=== PATIENT | female | born 1970 | race Caucasian/White ===

== ENCOUNTER 2016-05-04 16:59 | Inpatient (IN) | payer MEDICAID ==
[2016-05-04 18:48] LABS: ABG Draw Site Right Radial; ALLEN'S TEST PASS; BEb 10.8 (+/- 2); TCO2 39.4 MMOL/L (23-27)
[2016-05-04] MEDS ORDERED: LEVALBUTEROL 1.25 MG in 3 ML NEB NEB PRN (18:55)
[2016-05-04] MEDS ORDERED: GLUCOSE (ORAL GEL) 15 GM TUBE PO PRN (18:58)
[2016-05-04] MEDS ORDERED: GLUCAGON 1 MG VIAL SQ PRN (18:58)
[2016-05-04] MEDS ORDERED: DEXTROSE 25 GM/50 ML PFS IV PRN (18:58)
[2016-05-04] MEDS ORDERED: PROMETHAZINE 25 MG/ML VIAL IV PRN (18:59)
[2016-05-04] MEDS ORDERED: ZOLPIDEM TARTRATE 5 MG TAB PO PRN (18:59)
[2016-05-04] MEDS ORDERED: Docusate Sodium 100 MG CAP PO PRN (18:59)
[2016-05-04] MEDS ORDERED: Aluminum;Magnesium;Simethicone 30 ML UDC PO PRN (18:59)
[2016-05-04] MEDS ORDERED: ACETAMINOPHEN 650 MG SUPP PR PRN (18:59)
--- NOTE | 2016-05-04 19:17 | DIRPT ---
CLINICAL DATA: Respiratory distress, hypertension and history of COPD. EXAM: PORTABLE CHEST 1 VIEW COMPARISON: 12/30/2015 FINDINGS: The heart size and mediastinal contours are within normal limits. Stable emphysematous lung disease. There is no evidence of pulmonary edema, consolidation, pneumothorax, nodule or pleural fluid. The visualized skeletal structures are unremarkable. IMPRESSION: Stable emphysema. No active disease. Electronically Signed By: Gómez Curiel M.D. On: 05/04/2016 19:14
[2016-05-04] MEDS: HYDROCODONE 5 MG/ACETAMIN 325 MG TAB PO PRN (19:30)
[2016-05-04] MEDS ORDERED: METHYLPREDNISOLONE 125 MG/2 ML VIAL IV ONE (20:00)
[2016-05-04] MEDS ORDERED: Vaccine Screening Complete SCH (20:00)
[2016-05-04 20:37] LABS: BLOOD UREA NITROGEN 13 MG/DL (7-17); CALCIUM 9.1 MG/DL (8.4-10.2); CALCULATED OSMOLALITY 264 MOs/Kg (270-290); CHLORIDE 92 mEq/L (98-107); CPK TOTAL WITH POSSIBLE MB 153 IU/L (30-134); GLUCOSE 165 MG/DL (70-99); MPV 7.9 fL (7.4-10.4); PARTIAL THROMB. TIME 24.5 SEC (22-35); SODIUM LEVEL 135 mEq/L (137-146); TOTAL PROTEIN 6.5 G/DL (6.3-8.2)
[2016-05-04] MEDS: CEFEPIME HYDROCHLORIDE 2 GM in D5W 100 ML IV SCH (20:49)
[2016-05-04 21:14] LABS: CPKMB 10.4 ng/mL (0-4.5); CPKMB RELATIVE INDEX 6.8 (0.0-2.2)
[2016-05-04 21:17] LABS: SEG NEUTROPHIL 76 % (45-76); TOTAL CELL COUNT 100
[2016-05-04] MEDS: ALPRAZOLAM 0.5 MG TAB PO SCH (21:39)
[2016-05-04] MEDS: MORPHINE 30 MG IMMED REL TAB PO PRN (21:39)
[2016-05-04] MEDS: MONTELUKAST SODIUM 10 MG TAB PO SCH (21:40)
[2016-05-04] MEDS: Docusate Sodium 100 MG CAP PO SCH (21:40)
[2016-05-04] MEDS: LUBIPROSTONE 24 MCG CAP PO SCH (21:40)
[2016-05-04] MEDS: FAMOTIDINE 20 MG TAB PO SCH (21:40)
[2016-05-04] MEDS: NICOTINE 21 MG PATCH TOP SCH (21:40)
[2016-05-04] MEDS: AZITHROMYCIN 500 MG in D5W 250 ML IV SCH (21:43)
[2016-05-04 22:44] LABS: LEUKOCYTES/URINE NEG (NEGATIVE); NITRITE/URINE NEG (NEGATIVE); URINE OCCULT BLOOD NEG (NEG/TRACE)
[2016-05-04 22:52] LABS: RBC/URINE 0-2 (0-5); WBC/URINE 0-2 (0-5)
[2016-05-04] MEDS: REGULAR INSULIN 100 UNITS/ML - 3 ML VIAL SQ SCH (23:32)
[2016-05-04] MEDS: IPRATROPIUM 0.02% 2.5 ML NEB NEB SCH (23:42)
[2016-05-04] MEDS: LEVALBUTEROL 1.25 MG in 3 ML NEB NEB SCH (23:47)
[2016-05-05] MEDS: METHYLPREDNISOLONE 125 MG/2 ML VIAL IV SCH ×4 (02:55→21:44)
[2016-05-05] MEDS: MORPHINE 30 MG IMMED REL TAB PO PRN ×4 (03:21→21:28)
[2016-05-05] MEDS: PANTOPRAZOLE 40 MG TAB PO SCH (05:49)
[2016-05-05] MEDS: ALPRAZOLAM 0.5 MG TAB PO SCH ×3 (05:49→21:28)
[2016-05-05] MEDS: REGULAR INSULIN 100 UNITS/ML - 3 ML VIAL SQ SCH ×3 (05:50→18:00)
[2016-05-05] MEDS: CEFEPIME HYDROCHLORIDE 2 GM in D5W 100 ML IV SCH ×2 (08:05→21:27)
[2016-05-05] MEDS: PROBIOTIC BLEND TAB PO SCH (08:05)
[2016-05-05] MEDS: LUBIPROSTONE 24 MCG CAP PO SCH ×2 (08:06→21:27)
[2016-05-05] MEDS: Docusate Sodium 100 MG CAP PO SCH ×2 (08:07→21:27)
[2016-05-05] MEDS: THEOPHYLLINE 200 MG PO SCH (08:07)
[2016-05-05] MEDS: LOSARTAN POTASSIUM 50 MG TAB PO SCH (08:09)
[2016-05-05] MEDS ORDERED: FENTANYL 100 MCG PATCH TOP SCH (09:00)
[2016-05-05] MEDS ORDERED: THEOPHYLLINE 200 MG PO SCH (09:00)
[2016-05-05] MEDS: LEVALBUTEROL 1.25 MG in 3 ML NEB NEB SCH ×2 (09:35→17:13)
[2016-05-05] MEDS: IPRATROPIUM 0.02% 2.5 ML NEB NEB SCH ×2 (09:35→17:15)
[2016-05-05] MEDS: BUDESONIDE 0.5 MG NEB NEB SCH ×2 (09:42→21:18)
[2016-05-05] MEDS: HYDROCODONE 5 MG/ACETAMIN 325 MG TAB PO PRN ×3 (13:41→22:57)
--- NOTE | 2016-05-05 13:59 | PCM.PULM ---
Chief Complaint: Respiratory failure acute on chronic COPD exacerbation Chronic pain Anxiety Patient sitting at bedside feeling a little better today. Patient is somewhat drowsy today Still has significant dyspnea, BARKER,cough, sputum, wheeze, chest congestion, fatigued. No chest pain reported Medication list reviewed:yes Notes reviewed:yes, Events from last night noted and discussed with Clinical Staff DVT/GI prophylaxis:yes - Physical Examination Vital Signs and I&O: Last Vital Signs Temp 98.2 F 05/05/16 11:58 Pulse 95 05/05/16 11:58 Resp 20 05/05/16 11:58 BP 110/64 05/05/16 11:58 Pulse Ox 96 05/05/16 11:58 Oxygen Pulse Oxygen Saturation 96 O2 Device Nasal Cannula Oxygen Flow Rate 2.5 Fraction of Inspired Oxygen ( FIO2) Intake & Output 05/02/16 05/03/16 05/04/16 05/05/16 23:59 23:59 23:59 23:59 Intake Total 600 Output Total 1050 Balance -450 Patient's weight 53.796 kg 54.839 kg General: Alert, Oriented x3, Cooperative, No acute distress, Weakness, Fatigue Respiratory: Diminished, Rhonchi Cardiovascular: Regular rate, Regular rate and rhythm, Normal S1, No Gallops, Rubs/Murmurs, Normal S2, Good Pedal Pulses (Dp pulses 2+ bilaterally) GI: Normal bowel sounds, Soft, Non tender, No hepatospenomegaly, No masses Extremities/Musculoskeletal: Normal pulses Skin: Warm,Dry and Intact, No rashes, No breakdown, No significant lesion Neurological: Normal Steady Gait, Normal speech, Strength at 5/5 X4 ext, Normal tone, Cranial nerves 3-12 NL Psych/Mental Status: Appropriate, Anxious Result Diagrams: 05/04/16 19:45 05/04/16 19:45 Labs (last 24 hours): Laboratory Results - last 24 hr 05/04/16 05/04/16 05/04/16 18:44 19:45 19:45 WBC 10.3 RBC 4.28 Hgb 14.4 Hct 41.9 MCV 98 MCH 33.6 H MCHC 34.3 RDW 13.1 Plt Count 239 MPV 7.9 Neut % (Auto) Cancelled Lymph % (Auto) Cancelled Lucas % (Auto) Cancelled Eos % (Auto) Cancelled Baso % (Auto) Cancelled Absolute Neuts (auto) Cancelled Absolute Lymphs (auto) Cancelled Seg Neuts % (Manual) 76 Band Neutrophils % 0 Lymphocytes % (Manual) 11 L Monocytes % (Manual) 11 H Metamyelocytes % 2 H Absolute Neutrophils 7.83 Absolute Lymphocytes 1.13 Platelet Estimate Norm RBC Morphology Norm PT INR APTT Puncture Site Right radial pH 7.420 pCO2 58.0 H pO2 111.0 H HCO3 37.6 H Total CO2 39.4 H Base Excess 10.8 H FiO2 % 3lpm nc Specimen Drawn By Piksa Sodium 135 L Potassium 4.2 Chloride 92 L Carbon Dioxide 33 Anion Gap 14 BUN 13 Creatinine 0.50 L Estimated GFR (MDRD) > 60 Glucose 165 H POC Capillary Glucose Calculated Osmolality 264 L Calcium 9.1 Total Bilirubin 0.6 AST 41 H ALT 55 H Alkaline Phosphatase 59 Creatine Kinase 153 H CK-MB (CK-2) 10.4 H CK-MB (CK-2) Rel Index 6.8 H Troponin I < 0.01 Total Protein 6.5 Albumin 4.0 Urine Color Urine Clarity Urine pH Ur Specific [place] Urine Protein Urine Glucose (UA) Urine Ketones Urine Occult Blood Urine Nitrite Urine Bilirubin Urine Urobilinogen Ur Leukocyte Esterase Urine RBC Urine WBC Ur Epithelial Cells Urine Mucus Theophylline 05/04/16 05/04/16 05/04/16 19:45 19:45 21:45 WBC RBC Hgb Hct MCV MCH MCHC RDW Plt Count MPV Neut % (Auto) Lymph % (Auto) Lucas % (Auto) Eos % (Auto) Baso % (Auto) Absolute Neuts (auto) Absolute Lymphs (auto) Seg Neuts % (Manual) Band Neutrophils % Lymphocytes % (Manual) Monocytes % (Manual) Metamyelocytes % Absolute Neutrophils Absolute Lymphocytes Platelet Estimate RBC Morphology PT 10.5 INR 1.0 APTT 24.5 Puncture Site pH pCO2 pO2 HCO3 Total CO2 Base Excess FiO2 % Specimen Drawn By Sodium Potassium Chloride Carbon Dioxide Anion Gap BUN Creatinine Estimated GFR (MDRD) Glucose POC Capillary Glucose Calculated Osmolality Calcium Total Bilirubin AST ALT Alkaline Phosphatase Creatine Kinase CK-MB (CK-2) CK-MB (CK-2) Rel Index Troponin I Total Protein Albumin Urine Color Yellow Urine Clarity Sl hzy Urine pH 6.0 Ur Specific [place] 1.010 Urine Protein Neg Urine Glucose (UA) 2+ H Urine Ketones Neg Urine Occult Blood Neg Urine Nitrite Neg Urine Bilirubin Neg Urine Urobilinogen 0.2 Ur Leukocyte Esterase Neg Urine RBC 0-2 Urine WBC 0-2 Ur Epithelial Cells 2+ Urine Mucus Occ Theophylline < 1.0 L 05/04/16 05/05/16 05/05/16 23:31 05:45 11:56 WBC RBC Hgb Hct MCV MCH MCHC RDW Plt Count MPV Neut % (Auto) Lymph % (Auto) Lucas % (Auto) Eos % (Auto) Baso % (Auto) Absolute Neuts (auto) Absolute Lymphs (auto) Seg Neuts % (Manual) Band Neutrophils % Lymphocytes % (Manual) Monocytes % (Manual) Metamyelocytes % Absolute Neutrophils Absolute Lymphocytes Platelet Estimate RBC Morphology PT INR APTT Puncture Site pH pCO2 pO2 HCO3 Total CO2 Base Excess FiO2 % Specimen Drawn By Sodium Potassium Chloride Carbon Dioxide Anion Gap BUN Creatinine Estimated GFR (MDRD) Glucose POC Capillary Glucose 291 H 262 H 213 H Calculated Osmolality Calcium Total Bilirubin AST ALT Alkaline Phosphatase Creatine Kinase CK-MB (CK-2) CK-MB (CK-2) Rel Index Troponin I Total Protein Albumin Urine Color Urine Clarity Urine pH Ur Specific [place] Urine Protein Urine Glucose (UA) Urine Ketones Urine Occult Blood Urine Nitrite Urine Bilirubin Urine Urobilinogen Ur Leukocyte Esterase Urine RBC Urine WBC Ur Epithelial Cells Urine Mucus Theophylline Lab/DI/Studies Reviewed: EKG: NSR, NO ST or ST wave changes noted Cxray: 1 view Chest x-ray was seen personally patient seems to have hyperinflated lung field with no acute infiltrates Medications Acetaminophen (Tylenol Suppository) 650 mg [place] Q6H PRN PRN Reason: Mild Pain or Fever above 100.4 Stop: 05/18/16 18:58 Acetaminophen/Hydrocodone Bitart (Hydrocodone 5 Mg/Acetamin 325 Mg) 1 tab PO Q4H PRN PRN Reason: MODERATE PAIN Stop: 05/18/16 18:58 Last Admin: 05/05/16 13:41 Dose: 1 tab Docusate Sodium (Colace) 100 mg PO BID [facility] Stop: 05/18/16 16:59 Last Admin: 05/05/16 08:07 Dose: Not Given Enoxaparin Sodium (Lovenox) 40 mg SQ DAILY@1800 [facility] Stop: 05/19/16 19:59 Famotidine (Pepcid) 20 mg PO HS [facility] Stop: 05/18/16 16:59 Last Admin: 05/04/16 21:40 Dose: 20 mg Insulin Human Regular (Humulin R) 0 units SQ Q6 NASEEM PRN Reason: Protocol Stop: 05/19/16 00:00 Last Admin: 05/05/16 12:23 Dose: 6 units Ipratropium [place] (Atrovent) 2.5 ml NEB RTQ8 [facility] Stop: 05/19/16 00:00 Last Admin: 05/05/16 09:35 Dose: 2.5 ml Lact Acid/Bifidobact/Lact [place]/Streptoc Th (Miley Q) 1 tab PO DAILY@1200 [facility] Stop: 05/18/16 16:59 Last Admin: 05/05/16 08:05 Dose: 1 tab Acetaminophen (Tylenol Tablet) 650 mg PO Q6H PRN PRN Reason: Mild Pain or Fever above 100.4 Stop: 05/18/16 18:58 Al Hydrox/Mg Hydrox/Simethicone (Maalox Plus, Mylanta) 30 ml PO Q3H PRN PRN Reason: Heartburn or Indigestion Stop: 05/18/16 18:58 Alprazolam (Xanax) 0.5 mg PO Q6H PRN PRN Reason: Anxiety Stop: 05/18/16 18:58 Alprazolam (Xanax) 1 mg PO TID [facility] Stop: 05/18/16 16:59 Last Admin: 05/05/16 13:35 Dose: 1 mg Azithromycin 500 mg/ Dextrose 250 mls @ 250 mls/hr IV Q24H [facility] Stop: 05/09/16 20:59 Last Admin: 05/04/16 21:43 Dose: 250 mls/hr Benzonatate (Tessalon) 100 mg PO Q8 PRN PRN Reason: Cough Stop: 05/18/16 18:58 Budesonide (Pulmicort) 0.5 mg NEB RTBID [facility] Stop: 05/19/16 07:59 Last Admin: 05/05/16 09:42 Dose: 0.5 mg Cefepime HCl 2 gm/ Dextrose 100 mls @ 200 mls/hr IV Q12H [facility] Stop: 05/11/16 19:59 Last Admin: 05/05/16 08:05 Dose: 200 mls/hr Chlorphenir/Hydrocodone Polistirex (Tussionex) 5 ml PO Q12H PRN PRN Reason: Cough Stop: 05/18/16 18:58 Levalbuterol HCl (Xopenex 1.25 Mg) 1.25 mg NEB Q2H PRN PRN Reason: Wheezing Stop: 05/18/16 18:54 Levalbuterol HCl (Xopenex 1.25 Mg) 1.25 mg NEB RTQ8 [facility] Stop: 05/19/16 00:00 Last Admin: 05/05/16 09:35 Dose: 1.25 mg Losartan Potassium (Cozaar) 50 mg PO DAILY [facility] Stop: 05/18/16 16:59 Last Admin: 05/05/16 08:09 Dose: 50 mg Lubiprostone (Amitiza) 24 mcg PO BID [facility] Stop: 05/18/16 16:59 Last Admin: 05/05/16 08:06 Dose: 24 mcg Methylprednisolone Sodium Succinate (Solu-Medrol) 60 mg IV Q6H [facility] Stop: 05/19/16 01:59 Last Admin: 05/05/16 13:35 Dose: 60 mg Montelukast Sodium (Singulair) 10 mg PO HS [facility] Stop: 05/18/16 16:59 Last Admin: 05/04/16 21:40 Dose: 10 mg Morphine Sulfate (Msir (Immediate Release Morphine Tab)) 60 mg PO Q6H PRN PRN Reason: Severe Pain Stop: 05/11/16 16:59 Last Admin: 05/05/16 09:17 Dose: 60 mg Nicotine (Nicoderm) 21 mg TOP Q24H [facility] Stop: 05/18/16 20:59 Last Admin: 05/04/16 21:40 Dose: 21 mg Pantoprazole Sodium (Protonix) 40 mg PO 0600 [facility] Stop: 05/19/16 05:59 Last Admin: 05/05/16 05:49 Dose: 40 mg Theophylline (Cecilio-24) 200 mg PO DAILY [facility] Stop: 05/19/16 08:59 Last Admin: 05/05/16 08:07 Dose: 200 mg Zolpidem Tartrate (Ambien) 5 mg PO HS PRN PRN Reason: Sleep or Insomnia Stop: 05/18/16 18:58 Promethazine HCl (Phenergan) 12.5 mg IV Q4H PRN PRN Reason: NAUSEA / VOMITING Stop: 02/01/17 18:58 - Assessment/Plan (1) Acute exacerbation of chronic obstructive airways disease Acute J44.1 - CHRONIC OBSTRUCTIVE PULMONARY DISEASE W (ACUTE) EXACERBATION Comment/Plan: Patient continues to be on Zithromax and cefepime and is getting Solu-Medrol 60 mg IV q.6 hours patient has a history of improving but very slowly and therefore would continue the current treatment for now start the patient on Diflucan as she generally gets thrush because of antibiotics I would repeat a chest x-ray a blood gas in the morning continue other supportive care on this patient would also get a CBC and BMP on this patient as well I would also cut down the Solu-Medrol to 40 mg IV q.8 hours (2) Acute hypercapnic respiratory failure Acute J96.02 - ACUTE RESPIRATORY FAILURE WITH HYPERCAPNIA Comment/Plan: Continue the current supportive care with oxygen nebulizers DVT and GI prophylaxis and antibiotics (3) Anxiety Acute F41.9 - ANXIETY DISORDER, UNSPECIFIED Comment/Plan: Patient is getting Xanax for anxiety she has been on a lot of morphine and fentanyl drip and I had a prolonged discussion with Dr. Murry of pain management with given me some advise however I would wait for the patient's pulmonary status to get better before we can change it her morphine has already been decreased from 60 Q 4-40 Q 4 I intend to continue decreasing it is stopping fentanyl and in the way also patient would be a good candidate for morphine pump once her pulmonary condition improves (4) Chronic pain Acute G89.29 - OTHER CHRONIC PAIN chronic pain syndrome G89.4 - Chronic pain syndrome Comment/Plan: she has been on a lot of morphine and fentanyl drip and I had a prolonged discussion with Dr. Murry of pain management with given me some advise however I would wait for the patient's pulmonary status to get better before we can change it her morphine has already been decreased from 60 Q 4-40 Q 4 I intend to continue decreasing it is stopping fentanyl and in the way also patient would be a good candidate for morphine pump once her pulmonary condition improves Would cut down fentanyl patch to 75 mics I personally saw and evaluated the patient.: Yes Case Care Discussed with: Patient, Family, Nursing Staff Education/Counseling Given To: Patient, Family Member Education/Counseling Given Regarding: Diagnosis, Treatment, Prognosis, Follow Up , Disposition Plan
--- NOTE | 2016-05-05 15:45 | CAPUEKG ---
[place], [place] Test Date: 2016-05-04 Pat Name: MALDONADO GUAJARDO Department: Room: 431 Gender: Female Dried [employer] Supervisor: DADA VENEGASB: Requested By: Order Number: Reading MD: Wolfgang Johnson MD Measurements Intervals [place] Rate: 87 P: 79 NH: 108 QRS: 65 QRSD: 74 T: 68 QT: 306 QTc: 368 Interpretive Statements Sinus rhythm with short NH Biatrial enlargement Abnormal ECG Electronically Signed On 05-05-16 15:45:25 EST by Wolfgang Johnson MD [email or web address]> [id number]
[2016-05-05] MEDS: ACETAMINOPHEN 325 MG/TAB TABLET PO PRN (17:08)
[2016-05-05] MEDS: FLUCONAZOLE 100 MG TAB PO SCH (17:58)
[2016-05-05] MEDS ORDERED: FENTANYL 50 MCG PATCH TOP SCH (21:00)
[2016-05-05] MEDS: ENOXAPARIN 40 MG/0.4 ML PFS SQ SCH (21:27)
[2016-05-05] MEDS: MONTELUKAST SODIUM 10 MG TAB PO SCH (21:28)
[2016-05-05] MEDS: NICOTINE 21 MG PATCH TOP SCH (21:28)
[2016-05-05] MEDS: FAMOTIDINE 20 MG TAB PO SCH (21:28)
[2016-05-05] MEDS: AZITHROMYCIN 500 MG in D5W 250 ML IV SCH (22:44)
[2016-05-05] MEDS: METHYLPREDNISOLONE 40 MG/1 ML VIAL IV SCH (22:52)
[2016-05-06] MEDS: LEVALBUTEROL 1.25 MG in 3 ML NEB NEB SCH ×3 (00:15→13:54)
[2016-05-06] MEDS: IPRATROPIUM 0.02% 2.5 ML NEB NEB SCH ×3 (00:15→13:55)
[2016-05-06] MEDS: REGULAR INSULIN 100 UNITS/ML - 3 ML VIAL SQ SCH ×5 (00:30→20:35)
[2016-05-06] MEDS: CEFEPIME HYDROCHLORIDE 2 GM in D5W 100 ML IV SCH ×3 (01:08→23:04)
[2016-05-06] MEDS: MORPHINE 30 MG IMMED REL TAB PO PRN ×4 (03:29→20:48)
[2016-05-06] MEDS: ACETAMINOPHEN 325 MG/TAB TABLET PO PRN ×3 (03:33→23:08)
[2016-05-06] MEDS: METHYLPREDNISOLONE 40 MG/1 ML VIAL IV SCH ×3 (05:05→20:31)
[2016-05-06] MEDS: ALPRAZOLAM 0.5 MG TAB PO SCH ×3 (05:05→20:23)
[2016-05-06] MEDS: PANTOPRAZOLE 40 MG TAB PO SCH (05:05)
[2016-05-06 06:25] LABS: ALLEN'S TEST PASS; BEb 9.2 (+/- 2); TCO2 38.6 MMOL/L (23-27)
[2016-05-06 06:30] LABS: ABG Draw Site Left Radial
[2016-05-06 07:19] LABS: MPV 7.9 fL (7.4-10.4)
[2016-05-06 07:20] LABS: BLOOD UREA NITROGEN 13 MG/DL (7-17); CALCULATED OSMOLALITY 264 MOs/Kg (270-290); CHLORIDE 97 mEq/L (98-107); GLUCOSE 66 MG/DL (70-99); SODIUM LEVEL 138 mEq/L (137-146)
[2016-05-06] MEDS: BUDESONIDE 0.5 MG NEB NEB SCH ×2 (08:28→19:51)
--- NOTE | 2016-05-06 08:50 | PCM.PULM ---
Chief Complaint: Patient in bed alert and responsive. Not feeling too good this morning. on oxygen. Says fentanyl patch is not helping her back pain Current complaints:SOB,BARKER,cough, wheeze, back pain Current medication list and notes reviewed:yes, Events from last night noted and discussed with Clinical Staff DVT prophylaxis:yes - Physical Examination Vital Signs and I&O: Last Vital Signs Temp 98.5 F 05/06/16 06:08 Pulse 73 05/06/16 06:17 Resp 18 05/06/16 06:08 BP 126/85 05/06/16 06:08 Pulse Ox 97 05/06/16 08:00 Oxygen Pulse Oxygen Saturation 97 O2 Device Nasal Cannula Oxygen Flow Rate 3 Fraction of Inspired Oxygen ( FIO2) Intake & Output 05/03/16 05/04/16 05/05/16 05/06/16 23:59 23:59 23:59 23:59 Intake Total 600 1218 Output Total 1050 Balance -450 1218 Patient's weight 53.796 kg 54.839 kg 55.157 kg General: Alert, Oriented x3, No acute distress, Weakness, Fatigue Respiratory: Diminished (bilaterally), Rhonchi Cardiovascular: Regular rate, Regular rate and rhythm, Normal S1, No Gallops, Rubs/Murmurs, Normal S2 GI: Normal bowel sounds, Soft, Non tender, No hepatospenomegaly, No masses Extremities/Musculoskeletal: Normal pulses Skin: Warm,Dry and Intact, No rashes, No breakdown Neurological: Normal Steady Gait, Normal speech, Strength at 5/5 X4 ext, Normal tone, Cranial nerves 3-12 NL, Reflexes 2+ Psych/Mental Status: Normal Affect, Anxious Result Diagrams: 05/06/16 06:10 05/06/16 06:10 Labs (last 24 hours): Laboratory Results - last 24 hr 05/06/16 05/06/16 05/06/16 00:29 05:13 06:10 WBC RBC Hgb Hct MCV MCH MCHC RDW Plt Count MPV Puncture Site pH pCO2 pO2 HCO3 Total CO2 Base Excess FiO2 % Specimen Drawn By Sodium 138 Potassium 4.0 Chloride 97 L Carbon Dioxide 35 H Anion Gap 10 BUN 13 Creatinine 0.50 L Estimated GFR (MDRD) > 60 Glucose 66 L POC Capillary Glucose 376 H 72 Calculated Osmolality 264 L Calcium 9.0 05/06/16 05/06/16 06:10 06:10 WBC 12.4 H RBC 3.78 L Hgb 12.7 D Hct 36.8 MCV 97 MCH 33.6 H MCHC 34.5 RDW 13.1 Plt Count 206 MPV 7.9 Puncture Site Left radial pH 7.380 pCO2 62.0 H pO2 113.0 H HCO3 36.7 H Total CO2 38.6 H Base Excess 9.2 H FiO2 % Nc 2 lpm Specimen Drawn By Robcha Sodium Potassium Chloride Carbon Dioxide Anion Gap BUN Creatinine Estimated GFR (MDRD) Glucose POC Capillary Glucose Calculated Osmolality Calcium Lab/DI/Studies Reviewed: Microbiology 05/04/16 19:45 Blood Blood Culture - Preliminary No growth aerobically or anaerobically at 24-48 hours. NORMAL VALUE = No growth 05/04/16 19:30 Blood Blood Culture - Preliminary No growth aerobically or anaerobically at 24-48 hours. NORMAL VALUE = No growth Medications Albuterol/Ipratropium (Duoneb) 3 ml NEB RTQ6 [facility] Stop: 01/09/16 16:59 Last Admin: 12/30/15 07:28 Dose: 3 ml Acetaminophen (Tylenol Suppository) 650 mg [place] Q6H PRN PRN Reason: Mild Pain or Fever above 100.4 Stop: 05/18/16 18:58 Acetaminophen/Hydrocodone Bitart (Hydrocodone 5 Mg/Acetamin 325 Mg) 1 tab PO Q4H PRN PRN Reason: MODERATE PAIN Stop: 05/18/16 18:58 Last Admin: 05/05/16 13:41 Dose: 1 tab Docusate Sodium (Colace) 100 mg PO BID [facility] Stop: 05/18/16 16:59 Last Admin: 05/05/16 08:07 Dose: Not Given Enoxaparin Sodium (Lovenox) 40 mg SQ DAILY@1800 [facility] Stop: 05/19/16 19:59 Famotidine (Pepcid) 20 mg PO HS [facility] Stop: 05/18/16 16:59 Last Admin: 05/04/16 21:40 Dose: 20 mg Insulin Human Regular (Humulin R) 0 units SQ Q6 NASEEM PRN Reason: Protocol Stop: 05/19/16 00:00 Last Admin: 05/05/16 12:23 Dose: 6 units Ipratropium [place] (Atrovent) 2.5 ml NEB RTQ8 [facility] Stop: 05/19/16 00:00 Last Admin: 05/05/16 09:35 Dose: 2.5 ml Lact Acid/Bifidobact/Lact [place]/Streptoc Th (Miley Q) 1 tab PO DAILY@1200 [facility] Stop: 05/18/16 16:59 Last Admin: 05/05/16 08:05 Dose: 1 tab Al Hydrox/Mg Hydrox/Simethicone (Maalox Plus, Mylanta) 30 ml PO Q3H PRN PRN Reason: Heartburn or Indigestion Stop: 01/09/16 16:59 Benzonatate (Tessalon) 200 mg PO TID PRN PRN Reason: Cough - First Option Stop: 01/09/16 16:59 Insulin Human Regular (Humulin R) 0 units SQ ACHS NASEEM PRN Reason: Protocol Stop: 01/09/16 16:59 Last Admin: 12/30/15 06:15 Dose: Not Given Zolpidem Tartrate (Ambien) 5 mg PO 2100,2200 PRN PRN Reason: Sleep or Insomnia Stop: 01/09/16 16:59 Alprazolam (Xanax) 1 mg PO TID [facility] Stop: 05/18/16 16:59 Last Admin: 05/05/16 13:35 Dose: 1 mg Azithromycin 500 mg/ Dextrose 250 mls @ 250 mls/hr IV Q24H [facility] Stop: 05/09/16 20:59 Last Admin: 05/04/16 21:43 Dose: 250 mls/hr Benzonatate (Tessalon) 100 mg PO Q8 PRN PRN Reason: Cough Stop: 05/18/16 18:58 Budesonide (Pulmicort) 0.5 mg NEB RTBID [facility] Stop: 05/19/16 07:59 Last Admin: 05/05/16 09:42 Dose: 0.5 mg Cefepime HCl 2 gm/ Dextrose 100 mls @ 200 mls/hr IV Q12H [facility] Stop: 05/11/16 19:59 Last Admin: 05/05/16 08:05 Dose: 200 mls/hr Chlorphenir/Hydrocodone Polistirex (Tussionex) 5 ml PO Q12H PRN PRN Reason: Cough Stop: 05/18/16 18:58 Levalbuterol HCl (Xopenex 1.25 Mg) 1.25 mg NEB Q2H PRN PRN Reason: Wheezing Stop: 05/18/16 18:54 Levalbuterol HCl (Xopenex 1.25 Mg) 1.25 mg NEB RTQ8 [facility] Stop: 05/19/16 00:00 Last Admin: 05/05/16 09:35 Dose: 1.25 mg Losartan Potassium (Cozaar) 50 mg PO DAILY [facility] Stop: 05/18/16 16:59 Last Admin: 05/05/16 08:09 Dose: 50 mg Lubiprostone (Amitiza) 24 mcg PO BID [facility] Stop: 05/18/16 16:59 Last Admin: 05/05/16 08:06 Dose: 24 mcg Montelukast Sodium (Singulair) 10 mg PO HS [facility] Stop: 05/18/16 16:59 Last Admin: 05/04/16 21:40 Dose: 10 mg Morphine Sulfate (Msir (Immediate Release Morphine Tab)) 60 mg PO Q6H PRN PRN Reason: Severe Pain Stop: 05/11/16 16:59 Last Admin: 05/05/16 09:17 Dose: 60 mg Nicotine (Nicoderm) 21 mg TOP Q24H [facility] Stop: 05/18/16 20:59 Last Admin: 05/04/16 21:40 Dose: 21 mg Pantoprazole Sodium (Protonix) 40 mg PO 0600 [facility] Stop: 05/19/16 05:59 Last Admin: 05/05/16 05:49 Dose: 40 mg Theophylline (Cecilio-24) 200 mg PO DAILY [facility] Stop: 05/19/16 08:59 Last Admin: 05/05/16 08:07 Dose: 200 mg Zolpidem Tartrate (Ambien) 5 mg PO HS PRN PRN Reason: Sleep or Insomnia Stop: 05/18/16 18:58 Promethazine HCl (Phenergan) 12.5 mg IV Q4H PRN PRN Reason: NAUSEA / VOMITING Stop: 05/18/16 18:58 Fluconazole (Diflucan) 100 mg PO DAILY [facility] Stop: 05/12/16 16:59 Last Admin: 05/05/16 17:58 Dose: 100 mg Methylprednisolone Sodium Succinate (Solu-Medrol) 40 mg IV Q8H [facility] Stop: 05/19/16 21:59 Last Admin: 05/06/16 05:05 Dose: 40 mg Fentanyl (Duragesic) 50 mcg TOP Q72H [facility] Stop: 05/19/16 16:59 Last Admin: 05/05/16 21:27 Dose: 50 mcg - Assessment/Plan (1) Acute hypercapnic respiratory failure Acute J96.02 - ACUTE RESPIRATORY FAILURE WITH HYPERCAPNIA Comment/Plan: Patient is somewhat better however Patient still has significant dyspnea. Her wbc was slightly elevated. Would get a CBC, BMP in the morning. Would continue IV steroids, IV antibiotics, duo nebulizer tx, supplemental oxygen and other supportive care at this time. Patient was discussed Dr. Cortez for consult (2) Acute exacerbation of chronic obstructive airways disease Acute J44.1 - CHRONIC OBSTRUCTIVE PULMONARY DISEASE W (ACUTE) EXACERBATION Comment/Plan: Very slow improvement. Would continue current medication therapy with IV antibiotics, IV steroids, DVT/GI prophylaxis. Continue full supportive care (3) Anxiety Acute F41.9 - ANXIETY DISORDER, UNSPECIFIED Comment/Plan: Continue Xanax scheduled and prn (4) Chronic pain Acute G89.29 - OTHER CHRONIC PAIN chronic pain syndrome G89.4 - Chronic pain syndrome Comment/Plan: She has been on a lot of morphine and fentanyl drip. I had a prolonged discussion with Dr. Murry of pain management with given me some advise however I would wait for the patient's pulmonary status to get better before we can change it her morphine has already been decreased from 60 Q 4-40 Q 4. Would stop fentanyl patch and would continue with morphine po. I personally saw and evaluated the patient.: Yes Case Care Discussed with: Patient Education/Counseling Given To: Patient Education/Counseling Given Regarding: Diagnosis, Treatment, Prognosis, Follow Up , Disposition Plan
[2016-05-06 08:57] LABS: TOTAL CELL COUNT 100
[2016-05-06 08:58] LABS: SEG NEUTROPHIL 79 % (45-76)
[2016-05-06] MEDS ORDERED: FENTANYL 100 MCG PATCH TOP SCH ×2 (09:00→18:00)
[2016-05-06] MEDS: Docusate Sodium 100 MG CAP PO SCH ×2 (09:32→20:23)
[2016-05-06] MEDS: THEOPHYLLINE 200 MG PO SCH (09:32)
[2016-05-06] MEDS: LOSARTAN POTASSIUM 50 MG TAB PO SCH (09:32)
[2016-05-06] MEDS: FLUCONAZOLE 100 MG TAB PO SCH (09:33)
[2016-05-06] MEDS: LUBIPROSTONE 24 MCG CAP PO SCH ×2 (09:33→20:23)
[2016-05-06] MEDS: PROBIOTIC BLEND TAB PO SCH (09:36)
--- NOTE | 2016-05-06 09:53 | HIMCONSMED ---
Consultation Date: 05/06/16 Requesting Physician: Car Mckeon Consulting Doctor: Naye Cortez Consult Reason: Other-specify below (pain management and weaning of fentanyl) 45-year-old female extraordinarily long history chronic pain and CHRONIC OBSTRUCTIVE PULMONARY DISEASE. She is at the end of her lung life and Dr. Mckeon has begun to discuss hospice with her. He has asked me to stay her with regards to decreasing her fentanyl patch. He spoke with a painting contractor and was told to decrease the patch very slowly about every 3 days over several weeks. The patient provides extensive verbal discussion but very little information regarding her actual condition. She uses a lot of jargon speech. History taking was completely unhelpful. Chief Complaint: 45-year-old female admitted to our facility with worsening end- stage CHRONIC OBSTRUCTIVE PULMONARY DISEASE. Dr. Mckeon has asked me to assist with pain management in terms of decreasing her fentanyl patch. - Past Medical and Surgical History Cardiac History: Reports: Hypertension Respiratory History: Reports: Asthma, COPD, Emphysema GI/ History: Reports: Gastroesophageal Reflux Musculoskeletal History: Reports: Arthritis (severe pain, abhishek back. On fentanyl patch and other narcotics.) Psychological History: Reports: Anxiety, Substance Use Disorder (patient has stopped smoking). Denies: Alcoholism Past Surgical History: Reports: Other (cyst removed from T1-2 spine+ other back surgery)Comment Only: Cholecystectomy ("gallbladder needs removing but still has it") Allergies naproxen Allergy (Severe, Verified 05/04/16 18:12) Anaphylaxis* pregabalin [From Lyrica] Allergy (Severe, Verified 05/04/16 18:12) Hives* bupropion [From Wellbutrin SR] Adverse Reaction (Verified 05/04/16 18:12) Anxiety duloxetine HCl [From Cymbalta] Adverse Reaction (Verified 05/04/16 18:12) Nausea/Vomiting Home Medications Fentanyl [Duragesic 100 mcg/hr patch] 100 mcg TOP Q48H 05/27/12 Alprazolam [Xanax] 1 mg PO TID 12/02/14 Famotidine 20 mg PO HS 12/02/14 Nebulizer [Erapid Nebulizer] 1 each MC .UNKNOWN 12/02/14 Aclidinium [place] [Tudorza Pressair] 1 puff INH BID 09/10/16 Albuterol/Ipratropium Neb [Duoneb] 3 ml NEB Q6H PRN 12/26/15 Alendronate Sodium 70 mg PO .WEEKLY ON RYAN 12/26/15 Budesonide/Formoterol Fumarate [Symbicort 160-4.5 Mcg Inhaler] 2 puff INH BID Dexlansoprazole [Dexilant] 60 mg PO DAILY 12/26/15 Losartan Potassium 50 mg PO DAILY 12/26/15 Lubiprostone [Amitiza] 24 mcg PO BID 12/26/15 Morphine Sulfate 60 mg PO Q4H PRN 12/26/15 Theophylline Anhydrous [Cecilio-24] 200 mg PO DAILY 12/26/15 Levofloxacin [Levaquin] 750 mg PO DAILY #5 tablet 12/31/15 Atorvastatin Calcium [Lipitor] 40 mg PO QHS 05/04/16 Diltiazem HCl [Cartia Xt] 120 mg PO DAILY 05/04/16 Docusate Sodium [Colace] 100 mg PO BID 05/04/16 Levalbuterol [Xopenex 0.63 mg] 0.63 mg NEB Q6H PRN 05/04/16 Montelukast Sodium [Singulair] 10 mg PO DAILY 05/04/16 Nitroglycerin [Nitrostat] 0.4 mg SL Q5MX3 PRN 05/04/16 Prednisone [Deltasone] 40 mg PO DAILY 05/04/16 Fluconazole [Diflucan] 100 mg PO DAILY 05/05/16 - Social History Travel Outside of [place] in the Last 3 Months?: No Lives: with Spouse Smoking Status: Current some day smoker Social History: Reports: Substance Use Disorder (patient has stopped smoking). Denies: Alcohol Use - Family History Reports: Hypertension (Mother and Father), Diabetes (Mother and Father), Cancer (Mother), Cardiac Disorders (Mother and Father) - Review of Systems Yes Review of systems cannot be obtained due to the patient's medical condition - Physical Exam Vital Signs: Initial Vitals Pulse Rate 105 05/04/16 18:05 Constitutional: Alert, Agitated, Confused, Well nourished. negative: Well appearing Oriented to: Time, Person, Place - HEENT Head: Normal (normocephalic, atraumatic.), Other (No cervical lymphadenopathy. No supraclavicular lymphadenopathy. Neck: No palpable mass, supple , trachea midline.) Eye: Normal (pupils equal, reactive to light, and round; EOMI, Sclera white) Oropharynx: Normal (Pharynx: Moist without exudate,Gums-no swelling, No oropharyngeal lesions or erythema, Mucous membranes are dry.) Nose: No Symptoms Reported (septum midline, Nares patent, without discharge or bleeding.) Respiratory: Normal - CTA (Clear to auscultation bilaterally. No wheezing, rales , rhonchi. Chest wall movements are symmetric. No use of accessory muscles to breathe.) Cardiovascular: Tachycardia - GI Auscultation: Normal (normal active sounds) Palpation: Normal (Soft,non distended,nontender. No hepatosplenomegaly.) Tenderness: Non tender (No rebound or guarding) Bucio's Sign: Negative - Musculoskeletal Back: Thoracic TTP, Lumbar TTP Extremities: Normal (Normal tone, DP pulses 2+ bilaterally, No cyanosis or edema bilaterally, FROM bilaterally.) Spine: limited range of motion, muscle spasm, painful range of motion, tenderness. negative: full range of motion, normal alignment - Integumentary Skin: Normal (Clean, dry, and intact. No rashes. No lesions.) Lymphatics: Normal (No cervical lymphadenopathy. No supraclavicular lymphadenopathy.) - Neurologic Memory Impaired: Normal Motor Function: Abnormal Cranial Nerve: Normal Cerebellar: Normal Mood Description: Anxious, Agitated Thought: Flight of Ideas, Rambling Conversation Perception: Normal - Lab Results Laboratory Results - last 24 hr 05/05/16 05/05/16 05/05/16 11:56 15:58 16:02 WBC RBC Hgb Hct MCV MCH MCHC RDW Plt Count MPV Neut % (Auto) Lymph % (Auto) [place] % (Auto) Eos % (Auto) Baso % (Auto) Absolute Neuts (auto) Absolute Lymphs (auto) Seg Neuts % (Manual) Band Neutrophils % Lymphocytes % (Manual) Monocytes % (Manual) Myelocytes % Absolute Neutrophils Absolute Lymphocytes Vacuolated Neuts Atypical Lymphocytes Toxic Granulation Platelet Estimate RBC Morphology Puncture Site pH pCO2 pO2 HCO3 Total CO2 Base Excess FiO2 % Specimen Drawn By Sodium Potassium Chloride Carbon Dioxide Anion Gap BUN Creatinine Estimated GFR (MDRD) Glucose POC Capillary Glucose 213 H 403 H* 274 H Calculated Osmolality Calcium 05/06/16 05/06/16 05/06/16 00:29 05:13 06:10 WBC RBC Hgb Hct MCV MCH MCHC RDW Plt Count MPV Neut % (Auto) Lymph % (Auto) [place] % (Auto) Eos % (Auto) Baso % (Auto) Absolute Neuts (auto) Absolute Lymphs (auto) Seg Neuts % (Manual) Band Neutrophils % Lymphocytes % (Manual) Monocytes % (Manual) Myelocytes % Absolute Neutrophils Absolute Lymphocytes Vacuolated Neuts Atypical Lymphocytes Toxic Granulation Platelet Estimate RBC Morphology Puncture Site pH pCO2 pO2 HCO3 Total CO2 Base Excess FiO2 % Specimen Drawn By Sodium 138 Potassium 4.0 Chloride 97 L Carbon Dioxide 35 H Anion Gap 10 BUN 13 Creatinine 0.50 L Estimated GFR (MDRD) > 60 Glucose 66 L POC Capillary Glucose 376 H 72 Calculated Osmolality 264 L Calcium 9.0 05/06/16 05/06/16 06:10 06:10 WBC 12.4 H RBC 3.78 L Hgb 12.7 D Hct 36.8 MCV 97 MCH 33.6 H MCHC 34.5 RDW 13.1 Plt Count 206 MPV 7.9 Neut % (Auto) Cancelled Lymph % (Auto) Cancelled [place] % (Auto) Cancelled Eos % (Auto) Cancelled Baso % (Auto) Cancelled Absolute Neuts (auto) Cancelled Absolute Lymphs (auto) Cancelled Seg Neuts % (Manual) 79 H Band Neutrophils % 7 H Lymphocytes % (Manual) 5 L Monocytes % (Manual) 7 Myelocytes % 2 H Absolute Neutrophils 10.66 H Absolute Lymphocytes 0.62 L Vacuolated Neuts 1+ Atypical Lymphocytes Few Toxic Granulation 1+ Platelet Estimate Norm RBC Morphology Norm Puncture Site Left radial pH 7.380 pCO2 62.0 H pO2 113.0 H HCO3 36.7 H Total CO2 38.6 H Base Excess 9.2 H FiO2 % Nc 2 lpm Specimen Drawn By Robcha Sodium Potassium Chloride Carbon Dioxide Anion Gap BUN Creatinine Estimated GFR (MDRD) Glucose POC Capillary Glucose Calculated Osmolality Calcium - Diagnostic Findings PORTABLE CHEST 1 VIEW COMPARISON: 12/30/2015 FINDINGS: The heart size and mediastinal contours are within normal limits. Stable emphysematous lung disease. There is no evidence of pulmonary edema, consolidation, pneumothorax, nodule or pleural fluid. The visualized skeletal structures are unremarkable. IMPRESSION: Stable emphysema. No active disease. Electronically Signed By: Gómez Curiel M.D. On: 05/04/2016 19:14 - Assessment (1) Arthritis M19.90 - UNSPECIFIED OSTEOARTHRITIS, UNSPECIFIED SITE Acute Dr. Mckeon has spoken with the painting contractor who recommends slowly decreasing and stopping her fentanyl patch. She currently is receiving 100 mcg Q 48 hours. On Monday will decrease her to 75 mcg Q 48 hours. (2) Acute exacerbation of chronic obstructive airways disease J44.1 - CHRONIC OBSTRUCTIVE PULMONARY DISEASE W (ACUTE) EXACERBATION Acute Patient at the end of her lung life. I do not believe she is going to be able to improve much more. Continue management per Dr. Mckeon. (3) Acute hypercapnic respiratory failure J96.02 - ACUTE RESPIRATORY FAILURE WITH HYPERCAPNIA Acute Management per Dr. Mckeon. (4) Anxiety F41.9 - ANXIETY DISORDER, UNSPECIFIED Acute Very anxious. Will continue her Xanax from home. (5) HTN (hypertension) I10 - ESSENTIAL (PRIMARY) HYPERTENSION Acute Qualifiers: Hypertension type: essential hypertension Qualified Code(s): I10 - Essential (primary) hypertension Continue home medications - Plan Wean fentanyl patch as discussed above very slowly every 3 to 4 days. Case Care Discussed with: Patient, Nursing Staff Total Time: 60 minutes Critical Care: No Couseling Time (>50% in counseling/coordination): No
[2016-05-06] MEDS: BENZONATATE 100 MG PERLES PO PRN (10:35)
[2016-05-06] MEDS: ALPRAZOLAM 0.5 MG TAB PO PRN (10:36)
[2016-05-06] MEDS ORDERED: NITROGLYCERINE 0.4 MG TAB SL PRN (17:35)
[2016-05-06] MEDS ORDERED: MORPHINE 30 MG IMMED REL TAB PO PRN (17:35)
[2016-05-06] MEDS ORDERED: LEVALBUTEROL 0.63 MG IN 3 ML NEB NEB PRN ×2 (17:35→17:53)
[2016-05-06] MEDS ORDERED: Non-Formulary Medication ITEM (Nebulizer [Erapid Nebulizer] 1 EACH) MC SCH (17:45)
[2016-05-06] MEDS: ENOXAPARIN 40 MG/0.4 ML PFS SQ SCH (18:00)
[2016-05-06] MEDS: ALBUTEROL 0.083% 3 ML NEB NEB SCH (19:48)
[2016-05-06] MEDS: FAMOTIDINE 20 MG TAB PO SCH (20:23)
[2016-05-06] MEDS: MONTELUKAST SODIUM 10 MG TAB PO SCH (20:24)
[2016-05-06] MEDS: NICOTINE 21 MG PATCH TOP SCH (20:25)
[2016-05-06] MEDS: AZITHROMYCIN 500 MG in D5W 250 ML IV SCH (20:26)
[2016-05-06] MEDS: ATORVASTATIN 40 MG TAB PO SCH (20:34)
[2016-05-06] MEDS ORDERED: ACLIDINIUM BROMIDE INH SCH (21:00)
[2016-05-06] MEDS ORDERED: FAMOTIDINE 20 MG TAB PO SCH (21:00)
[2016-05-06] MEDS ORDERED: Non-Formulary Medication ITEM (Budesonide/Formoterol Fumarate [Symbicort 160-4.5 Mcg Inh INH SCH (21:00)
[2016-05-06] MEDS ORDERED: Docusate Sodium 100 MG CAP PO SCH (21:00)
[2016-05-06] MEDS ORDERED: ALPRAZOLAM 0.5 MG TAB PO SCH (21:00)
[2016-05-07] MEDS: ALBUTEROL 0.083% 3 ML NEB NEB SCH ×5 (01:00→23:56)
[2016-05-07] MEDS: IPRATROPIUM 0.02% 2.5 ML NEB NEB SCH ×4 (01:00→20:13)
[2016-05-07] MEDS: MORPHINE 30 MG IMMED REL TAB PO PRN ×5 (01:42→21:55)
[2016-05-07] MEDS: PANTOPRAZOLE 40 MG TAB PO SCH (05:27)
[2016-05-07] MEDS: METHYLPREDNISOLONE 40 MG/1 ML VIAL IV SCH ×3 (05:27→20:49)
[2016-05-07] MEDS: ALPRAZOLAM 0.5 MG TAB PO SCH ×3 (05:27→20:50)
[2016-05-07] MEDS: REGULAR INSULIN 100 UNITS/ML - 3 ML VIAL SQ SCH ×4 (05:36→21:56)
[2016-05-07] MEDS: TUSSIONEX 5 ML ORAL SYRINGE PO PRN ×2 (06:28→21:55)
[2016-05-07 08:09] LABS: MPV 7.8 fL (7.4-10.4)
[2016-05-07] MEDS: BUDESONIDE 0.5 MG NEB NEB SCH ×2 (08:18→20:13)
[2016-05-07] MEDS: LUBIPROSTONE 24 MCG CAP PO SCH ×2 (08:27→20:50)
[2016-05-07] MEDS: DILTIAZEM HCL 120 MG CAPSULE.CR PO SCH (08:28)
[2016-05-07] MEDS: LOSARTAN POTASSIUM 50 MG TAB PO SCH (08:28)
[2016-05-07] MEDS: Docusate Sodium 100 MG CAP PO SCH ×2 (08:28→20:50)
[2016-05-07] MEDS: THEOPHYLLINE 200 MG PO SCH (08:29)
[2016-05-07] MEDS: FLUCONAZOLE 100 MG TAB PO SCH (08:29)
[2016-05-07 08:37] LABS: BLOOD UREA NITROGEN 13 MG/DL (7-17); CALCIUM 8.9 MG/DL (8.4-10.2); CALCULATED OSMOLALITY 265 MOs/Kg (270-290); CHLORIDE 97 mEq/L (98-107); GLUCOSE 116 MG/DL (70-99); SODIUM LEVEL 137 mEq/L (137-146)
[2016-05-07] MEDS ORDERED: MONTELUKAST SODIUM 10 MG TAB PO SCH (09:00)
[2016-05-07] MEDS ORDERED: LOSARTAN POTASSIUM 50 MG PO SCH (09:00)
[2016-05-07] MEDS ORDERED: THEOPHYLLINE 200 MG PO SCH (09:00)
--- NOTE | 2016-05-07 09:48 | PCM.PULM ---
Chief Complaint: Patient in bed alert and responsive follows commands. A little drowsy this morning. Breathing is short when she walks in room on oxygen. Still has some chest congestions and cough. Current complaints:SOB,BARKER,cough,chest congestion,wheeze, sputum, back pain. No chest pain reported today Current medication and notes reviewed:yes - Physical Examination Vital Signs and I&O: Last Vital Signs Temp 98.4 F 05/07/16 04:00 Pulse 75 05/07/16 08:31 Resp 18 05/07/16 04:00 BP 120/86 05/07/16 08:31 Pulse Ox 96 05/07/16 08:00 Oxygen Pulse Oxygen Saturation 96 O2 Device Nasal Cannula Oxygen Flow Rate 2 Fraction of Inspired Oxygen ( FIO2) Intake & Output 05/04/16 05/05/16 05/06/16 05/07/16 23:59 23:59 23:59 23:59 Intake Total 600 1688 994 Output Total 1050 Balance -450 1688 994 Patient's weight 53.796 kg 54.839 kg 55.157 kg 54.703 kg General: Alert, Oriented x3, Cooperative, No acute distress, Fatigue Respiratory: Diminished, Rhonchi, Wheezes Cardiovascular: Regular rate, Regular rate and rhythm, Normal S1, No Gallops, Rubs/Murmurs, Normal S2 GI: Normal bowel sounds, Soft, Non tender, No hepatospenomegaly Extremities/Musculoskeletal: Normal pulses Skin: Warm,Dry and Intact, No rashes, No breakdown, No significant lesion Neurological: Normal Steady Gait, Normal speech, Strength at 5/5 X4 ext, Normal tone, Cranial nerves 3-12 NL Psych/Mental Status: Appropriate, Anxious (improved some) Result Diagrams: 05/07/16 06:55 05/07/16 06:55 Labs (last 24 hours): Laboratory Results - last 24 hr 05/07/16 05/07/16 05/07/16 05:12 06:55 06:55 WBC 11.5 H RBC 3.84 L Hgb 12.7 Hct 37.3 MCV 97 MCH 33.0 H MCHC 33.9 RDW 13.3 Plt Count 208 MPV 7.8 Sodium 137 Potassium 4.3 Chloride 97 L Carbon Dioxide 34 H Anion Gap 10 BUN 13 Creatinine 0.50 L Estimated GFR (MDRD) > 60 Glucose 116 H POC Capillary Glucose 194 H Calculated Osmolality 265 L Calcium 8.9 Lab/DI/Studies Reviewed: EKG: NSR, NO ST or ST wave changes noted Medications Acetaminophen (Tylenol Suppository) 650 mg MS Q6H PRN PRN Reason: Mild Pain or Fever above 100.4 Stop: 05/18/16 18:58 Acetaminophen/Hydrocodone Bitart (Hydrocodone 5 Mg/Acetamin 325 Mg) 1 tab PO Q4H PRN PRN Reason: MODERATE PAIN Stop: 05/18/16 18:58 Last Admin: 05/05/16 13:41 Dose: 1 tab Docusate Sodium (Colace) 100 mg PO BID [facility] Stop: 05/18/16 16:59 Last Admin: 05/05/16 08:07 Dose: Not Given Enoxaparin Sodium (Lovenox) 40 mg SQ DAILY@1800 [facility] Stop: 05/19/16 19:59 Famotidine (Pepcid) 20 mg PO HS [facility] Stop: 05/18/16 16:59 Last Admin: 05/04/16 21:40 Dose: 20 mg Insulin Human Regular (Humulin R) 0 units SQ Q6 NASEEM PRN Reason: Protocol Stop: 05/19/16 00:00 Last Admin: 05/05/16 12:23 Dose: 6 units Ipratropium [place] (Atrovent) 2.5 ml NEB RTQ8 [facility] Stop: 05/19/16 00:00 Last Admin: 05/05/16 09:35 Dose: 2.5 ml Lact Acid/Bifidobact/Lact [place]/Streptoc Th ([place] Q) 1 tab PO DAILY@1200 [facility] Stop: 05/18/16 16:59 Last Admin: 05/05/16 08:05 Dose: 1 tab Acetaminophen (Tylenol Tablet) 650 mg PO Q6H PRN PRN Reason: Mild Pain or Fever above 100.4 Stop: 05/18/16 18:58 Al Hydrox/Mg Hydrox/Simethicone (Maalox Plus, Mylanta) 30 ml PO Q3H PRN PRN Reason: Heartburn or Indigestion Stop: 05/18/16 18:58 Alprazolam (Xanax) 1 mg PO TID [facility] Stop: 05/18/16 16:59 Last Admin: 05/05/16 13:35 Dose: 1 mg Azithromycin 500 mg/ Dextrose 250 mls @ 250 mls/hr IV Q24H NASEEM Stop: 05/09/16 20:59 Last Admin: 05/04/16 21:43 Dose: 250 mls/hr Benzonatate (Tessalon) 100 mg PO Q8 PRN PRN Reason: Cough Stop: 05/18/16 18:58 Budesonide (Pulmicort) 0.5 mg NEB RTBID NASEEM Stop: 05/19/16 07:59 Last Admin: 05/05/16 09:42 Dose: 0.5 mg Cefepime HCl 2 gm/ Dextrose 100 mls @ 200 mls/hr IV Q12H NASEEM Stop: 05/11/16 19:59 Last Admin: 05/05/16 08:05 Dose: 200 mls/hr Chlorphenir/Hydrocodone Polistirex (Tussionex) 5 ml PO Q12H PRN PRN Reason: Cough Stop: 05/18/16 18:58 Levalbuterol HCl (Xopenex 1.25 Mg) 1.25 mg NEB Q2H PRN PRN Reason: Wheezing Stop: 05/18/16 18:54 Levalbuterol HCl (Xopenex 1.25 Mg) 1.25 mg NEB RTQ8 NASEEM Stop: 05/19/16 00:00 Last Admin: 05/05/16 09:35 Dose: 1.25 mg Losartan Potassium (Cozaar) 50 mg PO DAILY NASEEM Stop: 05/18/16 16:59 Last Admin: 05/05/16 08:09 Dose: 50 mg Lubiprostone (Amitiza) 24 mcg PO BID NASEEM Stop: 05/18/16 16:59 Last Admin: 05/05/16 08:06 Dose: 24 mcg Montelukast Sodium (Singulair) 10 mg PO HS NASEEM Stop: 05/18/16 16:59 Last Admin: 05/04/16 21:40 Dose: 10 mg Morphine Sulfate (Msir (Immediate Release Morphine Tab)) 60 mg PO Q6H PRN PRN Reason: Severe Pain Stop: 05/11/16 16:59 Last Admin: 05/05/16 09:17 Dose: 60 mg Nicotine (Nicoderm) 21 mg TOP Q24H NASEEM Stop: 05/18/16 20:59 Last Admin: 05/04/16 21:40 Dose: 21 mg Pantoprazole Sodium (Protonix) 40 mg PO 0600 [facility] Stop: 05/19/16 05:59 Last Admin: 05/05/16 05:49 Dose: 40 mg Theophylline (Cecilio-24) 200 mg PO DAILY [facility] Stop: 05/19/16 08:59 Last Admin: 05/05/16 08:07 Dose: 200 mg Zolpidem Tartrate (Ambien) 5 mg PO HS PRN PRN Reason: Sleep or Insomnia Stop: 05/18/16 18:58 Promethazine HCl (Phenergan) 12.5 mg IV Q4H PRN PRN Reason: NAUSEA / VOMITING Stop: 05/18/16 18:58 Fluconazole (Diflucan) 100 mg PO DAILY [facility] Stop: 05/12/16 16:59 Last Admin: 05/05/16 17:58 Dose: 100 mg Methylprednisolone Sodium Succinate (Solu-Medrol) 40 mg IV Q8H [facility] Stop: 05/19/16 21:59 Last Admin: 05/06/16 05:05 Dose: 40 mg Alprazolam (Xanax) 0.5 mg PO Q6H PRN PRN Reason: Anxiety Stop: 05/18/16 18:50 Fentanyl (Duragesic) 100 mcg TOP Q72H [facility] Stop: 05/20/16 17:59 Last Admin: 05/06/16 17:59 Dose: 100 mcg Morphine Sulfate (Msir (Immediate Release Morphine Tab)) 60 mg PO Q4H PRN PRN Reason: Severe Pain Stop: 05/13/16 17:49 Last Admin: 05/07/16 06:28 Dose: 60 mg - Assessment/Plan (1) Acute hypercapnic respiratory failure Acute J96.02 - ACUTE RESPIRATORY FAILURE WITH HYPERCAPNIA Comment/Plan: Patient has been uneventful continues to have wheezing which is mostly her baseline at this time I would cut down the steroids continue IV antibiotics continue nebulizers oxygen DVT and GI prophylaxis and would also cut down pain medications as tolerated by the patient patient has already been off of fentanyl patch since yesterday (2) Acute exacerbation of chronic obstructive airways disease Acute J44.1 - CHRONIC OBSTRUCTIVE PULMONARY DISEASE W (ACUTE) EXACERBATION Comment/Plan: Very slow improvement. Would continue current medication therapy with IV antibiotics, start tapering IV steroids, DVT/GI prophylaxis. Continue full supportive care (3) Anxiety Acute F41.9 - ANXIETY DISORDER, UNSPECIFIED Comment/Plan: Continue Xanax scheduled and prn (4) Chronic pain Acute G89.29 - OTHER CHRONIC PAIN chronic pain syndrome G89.4 - Chronic pain syndrome Comment/Plan: No change in current treatment .She has been on a lot of morphine and fentanyl drip. I had a prolonged discussion with Dr. Murry of pain management with given me some advise however I would wait for the patient's pulmonary status to get better before we can change it her morphine has already been decreased from 60 Q 4-40 Q 4. Would stop fentanyl patch and would continue with morphine po.
[2016-05-07 09:56] LABS: SEG NEUTROPHIL 87 % (45-76)
[2016-05-07] MEDS: CEFEPIME HYDROCHLORIDE 2 GM in D5W 100 ML IV SCH ×2 (11:43→23:03)
[2016-05-07] MEDS: PROBIOTIC BLEND TAB PO SCH (11:43)
--- NOTE | 2016-05-07 16:45 | GENMEDPROG ---
Chief Complaint: Consultation for pain management Subjective Note: Patient was admitted by Dr. Mckeon for COPD management as well as to try and wean her pain medications to something more reasonable. The patient does not specifically give me any complaints of pain. She speaks very rapidly and does not specifically answers questions although she does attempt to give me most of her life history. Current Medication List: Reviewed Currently: Reports: Cough, Wheezing, BARKER, SOB, Tobacco Use/Hx, Ambulating (Some in her room). Denies: Nausea and Vomiting, Abdominal Pain, Fever/Chills, Chest Pain DVT Prophylaxis: Yes - Physical Examination Vital Signs and I&O: Last Vital Signs Temp 98.3 F 05/07/16 15:35 Pulse 106 05/07/16 15:35 Resp 20 05/07/16 15:35 BP 137/76 05/07/16 15:35 Pulse Ox 96 05/07/16 15:35 Oxygen Pulse Oxygen Saturation 96 O2 Device Nasal Cannula Oxygen Flow Rate 2 Fraction of Inspired Oxygen ( FIO2) Intake & Output 05/04/16 05/05/16 05/06/16 05/07/16 23:59 23:59 23:59 23:59 Intake Total 600 1688 994 Output Total 1050 Balance -450 1688 994 Patient's weight 53.796 kg 54.839 kg 55.157 kg 54.703 kg General: Alert, Oriented x3, Moderate distress (After speaking paragraphs) HEENT: Anicteric Sclera, Mucous membr. moist/pink Neck: Normal inspection, No Masses palpable Lymphatics: Normal (No cervical lymphadenopathy. No supraclavicular lymphadenopathy.) Respiratory: Wheezes (Course wheezing throughout), Excursion (Decreased excursion) Cardiovascular: Regular rate and rhythm. negative: LE Edema GI: Normal bowel sounds, Soft, Non tender Extremities/Musculoskeletal: Capillary Refill (Less than 2 seconds). negative: Normal pulses (Decreased), Edema Skin: Warm,Dry and Intact Neurological: Normal tone, Other (Rapid drawn on sentences) Psych/Mental Status: Anxious Lab/DI/Studies Reviewed: 05/07/16 06:55 05/07/16 06:55 - Assessment (1) Chronic pain Chronic G89.29 - OTHER CHRONIC PAIN Qualifiers: Chronic pain type: chronic pain syndrome Qualified Code(s): G89.4 - Chronic pain syndrome Comment/Plan: Chronic pain apparently due to arthritis. The plan with this hospitalization is to attempt to wean her off of her Duragesic. She is still on oral morphine. Will decrease dose of fentanyl again tomorrow (2) Arthritis Acute M19.90 - UNSPECIFIED OSTEOARTHRITIS, UNSPECIFIED SITE Comment/Plan: Dr. Mckeon has spoken with the painter set who recommends slowly decreasing and stopping her fentanyl patch. She currently is receiving 100 mcg Q 48 hours. On Monday will decrease her to 75 mcg Q 48 hours. (3) Acute exacerbation of chronic obstructive airways disease Acute J44.1 - CHRONIC OBSTRUCTIVE PULMONARY DISEASE W (ACUTE) EXACERBATION Comment/Plan: Very poor long-term prognosis (4) Acute hypercapnic respiratory failure Acute J96.02 - ACUTE RESPIRATORY FAILURE WITH HYPERCAPNIA Comment/Plan: Management per Dr. Mckeon. (5) Anxiety Acute F41.9 - ANXIETY DISORDER, UNSPECIFIED Comment/Plan: Very anxious. Will continue her Xanax from home. (6) HTN (hypertension) Acute I10 - ESSENTIAL (PRIMARY) HYPERTENSION Qualifiers: Hypertension type: essential hypertension Qualified Code(s): I10 - Essential (primary) hypertension Comment/Plan: Continue home medications Case Care Discussed with: Patient, Family Education/Counseling Given To: Patient, Family Member Education/Counseling Given Regarding: Diagnosis, Treatment Total Time: 35 minutes Couseling Time (>50% in counseling/coordination): Yes Code: 07982 (12+)
[2016-05-07] MEDS: ENOXAPARIN 40 MG/0.4 ML PFS SQ SCH (16:54)
[2016-05-07] MEDS: MONTELUKAST SODIUM 10 MG TAB PO SCH (20:50)
[2016-05-07] MEDS: AZITHROMYCIN 250 MG TAB PO SCH (20:50)
[2016-05-07] MEDS: NICOTINE 21 MG PATCH TOP SCH (20:50)
[2016-05-07] MEDS: ATORVASTATIN 40 MG TAB PO SCH (20:50)
[2016-05-07] MEDS: FAMOTIDINE 20 MG TAB PO SCH (20:50)
[2016-05-07] MEDS ORDERED: NS 500 ML IV ONE (21:03)
[2016-05-08] MEDS: MORPHINE 30 MG IMMED REL TAB PO PRN ×4 (03:10→19:34)
[2016-05-08 05:04] VITALS: BMI 25.1
[2016-05-08] MEDS: PANTOPRAZOLE 40 MG TAB PO SCH (05:54)
[2016-05-08] MEDS: REGULAR INSULIN 100 UNITS/ML - 3 ML VIAL SQ SCH ×3 (05:54→17:01)
[2016-05-08] MEDS: METHYLPREDNISOLONE 40 MG/1 ML VIAL IV SCH ×3 (05:54→21:35)
[2016-05-08] MEDS: ALPRAZOLAM 0.5 MG TAB PO SCH ×3 (05:54→21:35)
[2016-05-08] MEDS: THEOPHYLLINE 200 MG PO SCH (08:16)
[2016-05-08] MEDS: FLUCONAZOLE 100 MG TAB PO SCH (08:16)
[2016-05-08] MEDS: LUBIPROSTONE 24 MCG CAP PO SCH ×2 (08:17→19:37)
[2016-05-08] MEDS: DILTIAZEM HCL 120 MG CAPSULE.CR PO SCH (08:17)
[2016-05-08] MEDS: LOSARTAN POTASSIUM 50 MG TAB PO SCH (08:17)
[2016-05-08] MEDS: Docusate Sodium 100 MG CAP PO SCH ×2 (08:17→19:37)
[2016-05-08] MEDS: PROBIOTIC BLEND TAB PO SCH (08:18)
[2016-05-08] MEDS ORDERED: Albuterol/Ipratropium Neb 3 ML NEB NEB ONE (08:30)
[2016-05-08] MEDS: BUDESONIDE 0.5 MG NEB NEB SCH ×2 (08:39→20:33)
[2016-05-08] MEDS ORDERED: ALBUTEROL 0.083% 3 ML NEB NEB PRN (08:45)
[2016-05-08] MEDS: IPRATROPIUM 0.02% 2.5 ML NEB NEB SCH (08:52)
[2016-05-08] MEDS: ALBUTEROL 0.083% 3 ML NEB NEB SCH (08:52)
--- NOTE | 2016-05-08 10:22 | PCM.PULM ---
Chief Complaint: Acute respiratory failure on chronic with hypoxia COPD exacerbation Anxiety Chronic pain Uneventful overnight patient sleep fair last night Breathing is slightly better. Wheezing and coughing some. Has been walking in [address] on oxygen. This is probably her baseline Current medication list reviewed:yes Notes reviewed:yes - Physical Examination Vital Signs and I&O: Last Vital Signs Temp 98.3 F 05/08/16 09:40 Pulse 83 05/08/16 09:40 Resp 18 05/08/16 09:40 BP 114/69 05/08/16 09:40 Pulse Ox 92 05/08/16 09:40 Oxygen Pulse Oxygen Saturation 92 O2 Device Nasal Cannula Oxygen Flow Rate 1 Fraction of Inspired Oxygen ( FIO2) Intake & Output 05/05/16 05/06/16 05/07/16 05/08/16 23:59 23:59 23:59 23:59 Intake Total 600 1688 994 678 Output Total 1050 Balance -450 1688 994 678 Patient's weight 54.839 kg 55.157 kg 54.703 kg 54.573 kg General: Alert, Oriented x3, No acute distress, Fatigue Respiratory: Diminished, Rhonchi, Wheezes (Scattered bilaterally) Cardiovascular: Regular rate, Regular rate and rhythm, Normal S1, No Gallops, Rubs/Murmurs, Normal S2 GI: Normal bowel sounds, Soft, Non tender, No masses Extremities/Musculoskeletal: Normal pulses Skin: Warm,Dry and Intact, No rashes, No breakdown, No significant lesion Neurological: Normal Steady Gait, Normal speech, Strength at 5/5 X4 ext, Cranial nerves 3-12 NL, Reflexes 2+ Psych/Mental Status: Normal Affect, Cooperative Result Diagrams: 05/07/16 06:55 05/07/16 06:55 Labs (last 24 hours): Laboratory Results - last 24 hr 05/08/16 05:23 POC Capillary Glucose 165 H Lab/DI/Studies Reviewed: EKG: NSR, NO ST or ST wave changes noticed Medications: Montelukast Sodium (Singulair) 10 mg PO HS NASEEM Stop: 01/11/16 16:59 Last Admin: 12/29/15 20:04 Dose: 10 mg Acetaminophen (Tylenol Suppository) 650 mg [place] Q6H PRN; Protocol PRN Reason: Mild Pain or Fever above 100.4 Stop: 01/09/16 16:59 Acetaminophen (Tylenol Tablet) 650 mg PO Q6H PRN; Protocol PRN Reason: Mild Pain or Fever above 100.4 Stop: 01/09/16 16:59 Last Admin: 12/28/15 20:39 Dose: 650 mg Famotidine (Pepcid) 20 mg PO HS [facility] Stop: 05/18/16 16:59 Last Admin: 05/04/16 21:40 Dose: 20 mg Insulin Human Regular (Humulin R) 0 units SQ Q6 NASEEM PRN Reason: Protocol Stop: 05/19/16 00:00 Last Admin: 05/05/16 12:23 Dose: 6 units Lact Acid/Bifidobact/Lact [place]/Streptoc Th (Miley Q) 1 tab PO DAILY@1200 [facility] Stop: 05/18/16 16:59 Last Admin: 05/05/16 08:05 Dose: 1 tab Al Hydrox/Mg Hydrox/Simethicone (Maalox Plus, Mylanta) 30 ml PO Q3H PRN PRN Reason: Heartburn or Indigestion Stop: 01/09/16 16:59 Alprazolam (Xanax) 0.5 mg PO Q6H PRN PRN Reason: Anxiety Stop: 05/18/16 18:58 Benzonatate (Tessalon) 200 mg PO TID PRN PRN Reason: Cough - First Option Stop: 01/09/16 16:59 Enoxaparin Sodium (Lovenox) 40 mg SQ 1800 [facility] Stop: 01/09/16 17:59 Last Admin: 12/29/15 17:27 Dose: 40 mg Insulin Human Regular (Humulin R) 0 units SQ ACHS [facility] PRN Reason: Protocol Stop: 01/09/16 16:59 Last Admin: 12/30/15 06:15 Dose: Not Given Losartan Potassium (Cozaar) 50 mg PO QAM [facility] Stop: 01/09/16 08:59 Last Admin: 12/30/15 08:26 Dose: 50 mg Lubiprostone (Amitiza) 24 mcg PO BID [facility] Stop: 01/09/16 20:59 Last Admin: 12/30/15 08:26 Dose: 24 mcg Magnesium Hydroxide (Milk Of Magnesia) 30 ml PO DAILY PRN PRN Reason: Constipation - First Option Stop: 01/09/16 16:59 Last Admin: 09/13/16 08:52 Dose: 30 ml Pantoprazole Sodium (Protonix) 40 mg PO 0600 [facility] Stop: 01/10/16 05:59 Last Admin: 12/30/15 06:14 Dose: 40 mg Acetaminophen (Tylenol Tablet) 650 mg PO Q6H PRN PRN Reason: Mild Pain or Fever above 100.4 Stop: 05/18/16 18:58 Budesonide (Pulmicort) 0.5 mg NEB RTBID [facility] Stop: 05/19/16 07:59 Last Admin: 05/05/16 09:42 Dose: 0.5 mg Chlorphenir/Hydrocodone Polistirex (Tussionex) 5 ml PO Q12H PRN PRN Reason: Cough Stop: 05/18/16 18:58 Losartan Potassium (Cozaar) 50 mg PO DAILY [facility] Stop: 05/18/16 16:59 Last Admin: 05/05/16 08:09 Dose: 50 mg Lubiprostone (Amitiza) 24 mcg PO BID [facility] Stop: 05/18/16 16:59 Last Admin: 05/05/16 08:06 Dose: 24 mcg Nicotine (Nicoderm) 21 mg TOP Q24H [facility] Stop: 05/18/16 20:59 Last Admin: 05/04/16 21:40 Dose: 21 mg Theophylline (Cecilio-24) 200 mg PO DAILY [facility] Stop: 05/19/16 08:59 Last Admin: 05/05/16 08:07 Dose: 200 mg Zolpidem Tartrate (Ambien) 5 mg PO HS PRN PRN Reason: Sleep or Insomnia Stop: 05/18/16 18:58 Promethazine HCl (Phenergan) 12.5 mg IV Q4H PRN PRN Reason: NAUSEA / VOMITING Stop: 05/18/16 18:58 Fluconazole (Diflucan) 100 mg PO DAILY [facility] Stop: 05/12/16 16:59 Last Admin: 05/05/16 17:58 Dose: 100 mg Methylprednisolone Sodium Succinate (Solu-Medrol) 40 mg IV Q8H [facility] Stop: 05/19/16 21:59 Last Admin: 05/06/16 05:05 Dose: 40 mg Alprazolam (Xanax) 1 mg PO TID [facility] Stop: 05/18/16 16:59 Last Admin: 05/06/16 05:05 Dose: 1 mg Fentanyl (Duragesic) 100 mcg TOP Q72H [facility] Stop: 05/20/16 17:59 Last Admin: 05/06/16 17:59 Dose: 100 mcg Azithromycin (Zithromax) 500 mg PO HS [facility] Stop: 05/09/16 16:59 Last Admin: 05/07/16 20:50 Dose: 500 mg Cefepime HCl 2 gm/ Dextrose 100 mls @ 200 mls/hr IV Q12H [facility] Stop: 05/13/16 00:00 Last Admin: 05/07/16 23:03 Dose: 200 mls/hr Morphine Sulfate (Msir (Immediate Release Morphine Tab)) 60 mg PO Q4H PRN PRN Reason: Severe Pain Stop: 05/13/16 17:49 Last Admin: 05/08/16 08:15 Dose: 60 mg Albuterol/Ipratropium (Duoneb) 3 ml NEB RTQ6 [facility] Stop: 05/22/16 13:59 - Assessment/Plan (1) Acute hypercapnic respiratory failure Acute J96.02 - ACUTE RESPIRATORY FAILURE WITH HYPERCAPNIA Comment/Plan: Patient has been relatively stable has been wheezing which she always does I would continue the current IV antibiotics and would cut down the steroids to p.o. prednisone 40 mg daily continue the current antibiotics including Zithromax and cefepime. Continue nebulizers DVT and GI prophylaxis her theophylline level has been extremely low and therefore would stop theophylline at this time as it is probably not working at all I would also continue the current pain medications patient has been off off fentanyl patch and remains on morphine prognosis remains guarded would follow the patient closely for development of complications (2) Acute exacerbation of chronic obstructive airways disease Acute J44.1 - CHRONIC OBSTRUCTIVE PULMONARY DISEASE W (ACUTE) EXACERBATION Comment/Plan: Very slow improvement. Would continue current medication therapy with IV antibiotics, start tapering IV steroids, DVT/GI prophylaxis. Continue full supportive care (3) Anxiety Acute F41.9 - ANXIETY DISORDER, UNSPECIFIED Comment/Plan: Continue Xanax scheduled and prn (4) Chronic pain Chronic G89.29 - OTHER CHRONIC PAIN chronic pain syndrome G89.4 - Chronic pain syndrome Comment/Plan: I would cut down the stairs morphine to 60 mg p.o. q.6 hours p.r.n. instead of q.4 hours and discontinue fentanyl patch as patient states that this has not been helping her anyway I had a prolonged discussion with Dr. Murry of pain management with given me some advise however I would wait for the patient's pulmonary status to get better before we can change it her morphine has already been decreased from 60 Q 4-40 Q 4. Would stop fentanyl patch and would continue with morphine po. Plan / Addtional Notes: Patient was discussed with Dr. Palafox in detail
[2016-05-08] MEDS: CEFEPIME HYDROCHLORIDE 2 GM in D5W 100 ML IV SCH ×2 (12:07→23:10)
[2016-05-08] MEDS: ACETAMINOPHEN 325 MG/TAB TABLET PO PRN (12:12)
[2016-05-08] MEDS: BENZONATATE 100 MG PERLES PO PRN (12:12)
--- NOTE | 2016-05-08 12:28 | GENMEDPROG ---
Subjective Note: Patient has been ambulating some in the halls. She has her baseline amount of back pain. She still does have a cough and gets short of breath but is almost back to her baseline by her account Current Medication List: Reviewed Currently: Reports: Cough (Still wet sounding but does not bring anything up), Wheezing, BARKER (Improved), SOB (Improved), Tobacco Use/Hx, Ambulating (Has ambulated in the halls on oxygen). Denies: Nausea and Vomiting, Abdominal Pain , Fever/Chills, Chest Pain DVT Prophylaxis: Yes - Physical Examination Vital Signs and I&O: Last Vital Signs Temp 98.3 F 05/08/16 09:40 Pulse 83 05/08/16 09:40 Resp 18 05/08/16 09:40 BP 114/69 05/08/16 09:40 Pulse Ox 92 05/08/16 09:40 Oxygen Pulse Oxygen Saturation 92 O2 Device Nasal Cannula Oxygen Flow Rate 1 Fraction of Inspired Oxygen ( FIO2) Intake & Output 05/05/16 05/06/16 05/07/16 05/08/16 23:59 23:59 23:59 23:59 Intake Total 600 1688 994 678 Output Total 1050 Balance -450 1688 994 678 Patient's weight 54.839 kg 55.157 kg 54.703 kg 54.573 kg General: Alert, Oriented x3, Mild distress (Is able to speak full sentences but does get a little bit breathless.) HEENT: Anicteric Sclera, Mucous membr. moist/pink Neck: Normal inspection, No Masses palpable Lymphatics: Normal (No cervical lymphadenopathy. No supraclavicular lymphadenopathy.) Respiratory: Rhonchi (Mild but clear some), Wheezes (Course wheezing throughout) , Excursion (Decreased excursion) Cardiovascular: Regular rate and rhythm. negative: LE Edema GI: Normal bowel sounds, Soft, Non tender Extremities/Musculoskeletal: negative: Normal pulses (Decreased), Edema Skin: Warm,Dry and Intact Neurological: Normal speech, Normal tone Psych/Mental Status: Anxious (Appears come but sentences are spoken very quickly ) - Assessment (1) Chronic pain Chronic G89.29 - OTHER CHRONIC PAIN Qualifiers: Chronic pain type: chronic pain syndrome Qualified Code(s): G89.4 - Chronic pain syndrome Comment/Plan: Chronic pain apparently due to arthritis. Dr. Mckeon has spoken with the patient and then with me after I saw her. She has felt that the fentanyl is not helpful and so this will be discontinued. She will be treated with oral morphine. Ultimately she needs a pain management referral and Dr. Mckeon has contacted that physician (2) Arthritis Acute M19.90 - UNSPECIFIED OSTEOARTHRITIS, UNSPECIFIED SITE Comment/Plan: See above. (3) Acute exacerbation of chronic obstructive airways disease Acute J44.1 - CHRONIC OBSTRUCTIVE PULMONARY DISEASE W (ACUTE) EXACERBATION Comment/Plan: Steroids are being weaned. She is still on antibiotics. (4) Acute hypercapnic respiratory failure Acute J96.02 - ACUTE RESPIRATORY FAILURE WITH HYPERCAPNIA Comment/Plan: Management per Dr. Mckeon. (5) Anxiety Acute F41.9 - ANXIETY DISORDER, UNSPECIFIED Comment/Plan: Very anxious. Will continue home meds (6) HTN (hypertension) Acute I10 - ESSENTIAL (PRIMARY) HYPERTENSION Qualifiers: Hypertension type: essential hypertension Qualified Code(s): I10 - Essential (primary) hypertension Comment/Plan: Continue home medications (7) Hyperglycemia Acute R73.9 - HYPERGLYCEMIA, UNSPECIFIED Comment/Plan: Blood sugars range from the 100 to 3 100s. She is on a moderate dose insulin sliding scale. A1c will be obtained. This may be a steroid effect in the steroids are being weaned. Case Care Discussed with: Patient, Consultants Education/Counseling Given To: Patient Education/Counseling Given Regarding: Diagnosis, Treatment Total Time: 25 minutes Critical Care: No Couseling Time (>50% in counseling/coordination): Yes Code: 29064 (12+)
[2016-05-08] MEDS: Albuterol/Ipratropium Neb 3 ML NEB NEB SCH ×2 (14:09→20:31)
[2016-05-08] MEDS ORDERED: FENTANYL 75 MCG PATCH TOP SCH (16:00)
[2016-05-08] MEDS: ENOXAPARIN 40 MG/0.4 ML PFS SQ SCH (17:01)
[2016-05-08] MEDS: NICOTINE 21 MG PATCH TOP SCH (19:36)
[2016-05-08] MEDS: MONTELUKAST SODIUM 10 MG TAB PO SCH (19:37)
[2016-05-08] MEDS: ATORVASTATIN 40 MG TAB PO SCH (19:37)
[2016-05-08] MEDS: FAMOTIDINE 20 MG TAB PO SCH (19:37)
[2016-05-08] MEDS: AZITHROMYCIN 250 MG TAB PO SCH (19:37)
[2016-05-08] MEDS: ALPRAZOLAM 0.5 MG TAB PO PRN (23:10)
[2016-05-09] MEDS: Albuterol/Ipratropium Neb 3 ML NEB NEB SCH ×4 (01:11→20:12)
[2016-05-09] MEDS: REGULAR INSULIN 100 UNITS/ML - 3 ML VIAL SQ SCH ×4 (01:26→16:55)
[2016-05-09] MEDS: MORPHINE 30 MG IMMED REL TAB PO PRN ×3 (01:34→17:01)
[2016-05-09] MEDS: HYDROCODONE 5 MG/ACETAMIN 325 MG TAB PO PRN ×2 (03:25→21:40)
[2016-05-09] MEDS: ACETAMINOPHEN 325 MG/TAB TABLET PO PRN ×3 (03:25→21:41)
[2016-05-09] MEDS: ALPRAZOLAM 0.5 MG TAB PO SCH ×3 (04:45→20:52)
[2016-05-09] MEDS: PANTOPRAZOLE 40 MG TAB PO SCH (04:46)
[2016-05-09] MEDS: METHYLPREDNISOLONE 40 MG/1 ML VIAL IV SCH ×3 (04:46→20:54)
[2016-05-09] MEDS: BUDESONIDE 0.5 MG NEB NEB SCH ×2 (08:05→20:13)
[2016-05-09] MEDS: FLUCONAZOLE 100 MG TAB PO SCH (08:22)
[2016-05-09] MEDS: LUBIPROSTONE 24 MCG CAP PO SCH ×2 (08:23→20:53)
[2016-05-09] MEDS: Docusate Sodium 100 MG CAP PO SCH ×2 (08:23→20:53)
[2016-05-09] MEDS: LOSARTAN POTASSIUM 50 MG TAB PO SCH (08:23)
[2016-05-09] MEDS: DILTIAZEM HCL 120 MG CAPSULE.CR PO SCH (08:24)
[2016-05-09] MEDS: PROBIOTIC BLEND TAB PO SCH (08:25)
--- NOTE | 2016-05-09 08:33 | PCM.PULM ---
Chief Complaint: Uneventful overnight Patient breathing is fair. Has some wheeze, cough, chest congestions and complaining of chronic pain and medications not helping much Current medication list and notes reviewed:yes DVT/GI prophylaxis:yes - Physical Examination Vital Signs and I&O: Last Vital Signs Temp 98.1 F 05/09/16 06:07 Pulse 102 05/09/16 06:07 Resp 20 05/09/16 06:07 BP 142/66 05/09/16 06:07 Pulse Ox 97 05/08/16 20:00 Oxygen Pulse Oxygen Saturation 97 O2 Device Nasal Cannula Oxygen Flow Rate 2 Fraction of Inspired Oxygen ( FIO2) Intake & Output 05/06/16 05/07/16 05/08/16 05/09/16 23:59 23:59 23:59 23:59 Intake Total 1688 994 978 186 Balance 1688 994 978 186 Patient's weight 55.157 kg 54.703 kg 54.573 kg General: Alert, Oriented x3, Cooperative, No acute distress Respiratory: Diminished, Wheezes Cardiovascular: Regular rate, Regular rate and rhythm, Normal S1, No Gallops, Rubs/Murmurs, Normal S2 GI: Normal bowel sounds, Soft, Non tender, No hepatospenomegaly Extremities/Musculoskeletal: Normal pulses Skin: Warm,Dry and Intact, No rashes, No breakdown, No significant lesion Neurological: Normal Steady Gait, Normal speech, Strength at 5/5 X4 ext, Normal tone, Cranial nerves 3-12 NL Psych/Mental Status: Appropriate Result Diagrams: 05/07/16 06:55 05/07/16 06:55 Labs (last 24 hours): Laboratory Results - last 24 hr 05/08/16 05/08/16 05/09/16 11:26 16:09 06:48 POC Capillary Glucose 322 H 309 H Hemoglobin A1c 7.6 H Lab/DI/Studies Reviewed: EKG: NSR, NO ST or ST wave changes noted Medications: Acetaminophen (Tylenol Suppository) 650 mg [place] Q6H PRN PRN Reason: Mild Pain or Fever above 100.4 Stop: 05/18/16 18:58 Acetaminophen/Hydrocodone Bitart (Hydrocodone 5 Mg/Acetamin 325 Mg) 1 tab PO Q4H PRN PRN Reason: MODERATE PAIN Stop: 05/18/16 18:58 Last Admin: 05/05/16 13:41 Dose: 1 tab Docusate Sodium (Colace) 100 mg PO BID [facility] Stop: 05/18/16 16:59 Last Admin: 05/05/16 08:07 Dose: Not Given Enoxaparin Sodium (Lovenox) 40 mg SQ DAILY@1800 [facility] Stop: 05/19/16 19:59 Famotidine (Pepcid) 20 mg PO HS [facility] Stop: 05/18/16 16:59 Last Admin: 05/04/16 21:40 Dose: 20 mg Insulin Human Regular (Humulin R) 0 units SQ Q6 [facility] PRN Reason: Protocol Stop: 05/19/16 00:00 Last Admin: 05/05/16 12:23 Dose: 6 units Ipratropium [place] (Atrovent) 2.5 ml NEB RTQ8 [facility] Stop: 05/19/16 00:00 Last Admin: 05/05/16 09:35 Dose: 2.5 ml Lact Acid/Bifidobact/Lact [place]/Streptoc Th (Miley Q) 1 tab PO DAILY@1200 [facility] Stop: 05/18/16 16:59 Last Admin: 05/05/16 08:05 Dose: 1 tab Albuterol/Ipratropium (Duoneb) 3 ml NEB RTQ6 [facility] Stop: 05/22/16 13:59 Acetaminophen (Tylenol Tablet) 650 mg PO Q6H PRN PRN Reason: Mild Pain or Fever above 100.4 Stop: 05/18/16 18:58 Al Hydrox/Mg Hydrox/Simethicone (Maalox Plus, Mylanta) 30 ml PO Q3H PRN PRN Reason: Heartburn or Indigestion Stop: 05/18/16 18:58 Alprazolam (Xanax) 0.5 mg PO Q6H PRN PRN Reason: Anxiety Stop: 05/18/16 18:58 Alprazolam (Xanax) 1 mg PO TID [facility] Stop: 05/18/16 16:59 Last Admin: 05/05/16 13:35 Dose: 1 mg Benzonatate (Tessalon) 100 mg PO Q8 PRN PRN Reason: Cough Stop: 05/18/16 18:58 Budesonide (Pulmicort) 0.5 mg NEB RTBID [facility] Stop: 05/19/16 07:59 Last Admin: 05/05/16 09:42 Dose: 0.5 mg Cefepime HCl 2 gm/ Dextrose 100 mls @ 200 mls/hr IV Q12H [facility] Stop: 05/11/16 19:59 Last Admin: 05/05/16 08:05 Dose: 200 mls/hr Chlorphenir/Hydrocodone Polistirex (Tussionex) 5 ml PO Q12H PRN PRN Reason: Cough Stop: 05/18/16 18:58 Losartan Potassium (Cozaar) 50 mg PO DAILY [facility] Stop: 05/18/16 16:59 Last Admin: 05/05/16 08:09 Dose: 50 mg Lubiprostone (Amitiza) 24 mcg PO BID [facility] Stop: 05/18/16 16:59 Last Admin: 05/05/16 08:06 Dose: 24 mcg Montelukast Sodium (Singulair) 10 mg PO HS [facility] Stop: 05/18/16 16:59 Last Admin: 05/04/16 21:40 Dose: 10 mg Nicotine (Nicoderm) 21 mg TOP Q24H [facility] Stop: 05/18/16 20:59 Last Admin: 05/04/16 21:40 Dose: 21 mg Pantoprazole Sodium (Protonix) 40 mg PO 0600 [facility] Stop: 05/19/16 05:59 Last Admin: 05/05/16 05:49 Dose: 40 mg Zolpidem Tartrate (Ambien) 5 mg PO HS PRN PRN Reason: Sleep or Insomnia Stop: 05/18/16 18:58 Promethazine HCl (Phenergan) 12.5 mg IV Q4H PRN PRN Reason: NAUSEA / VOMITING Stop: 05/18/16 18:58 Methylprednisolone Sodium Succinate (Solu-Medrol) 40 mg IV Q8H [facility] Stop: 05/19/16 21:59 Last Admin: 05/09/16 04:46 Dose: 40 mg Morphine Sulfate (Msir (Immediate Release Morphine Tab)) 60 mg PO Q6H PRN PRN Reason: Severe Pain Stop: 05/13/16 17:49 Last Admin: 05/09/16 01:34 Dose: 60 mg Fluconazole (Diflucan) 100 mg PO DAILY [facility] Stop: 12/30/15 16:59 Last Admin: 12/30/15 08:26 Dose: 100 mg Azithromycin (Zithromax) 500 mg PO HS [facility] Stop: 05/09/16 16:59 Last Admin: 05/08/16 19:37 Dose: 500 mg - Assessment/Plan (1) Acute hypercapnic respiratory failure Acute J96.02 - ACUTE RESPIRATORY FAILURE WITH HYPERCAPNIA Comment/Plan: Patient has been improving slowly I would continue the current treatment with prednisone Zithromax and cefepime I think patient should be able to go home relatively soon maybe even tomorrow I would continue the supportive care continue morphine sulfate 60 mg p.o. q.6 hours and would try to arrange for patient to have a morphine pump placed prognosis is guarded would follow the patient closely for development of complications (2) Acute exacerbation of chronic obstructive airways disease Acute J44.1 - CHRONIC OBSTRUCTIVE PULMONARY DISEASE W (ACUTE) EXACERBATION Comment/Plan: Very slow improvement. Would continue current medication therapy with IV antibiotics, start tapering IV steroids, DVT/GI prophylaxis. Continue full supportive care (3) Anxiety Acute F41.9 - ANXIETY DISORDER, UNSPECIFIED Comment/Plan: Continue Xanax scheduled and prn (4) Chronic pain Chronic G89.29 - OTHER CHRONIC PAIN chronic pain syndrome G89.4 - Chronic pain syndrome Comment/Plan: Patient gives a complaining of pain however I would continue the 60 mg of morphine q.6 hours and would arrange for patient to have a morphine sulfate pump as an outpatient by the pain physician continue other supportive care long- term prognosis guarded
[2016-05-09] MEDS: CEFEPIME HYDROCHLORIDE 2 GM in D5W 100 ML IV SCH (11:19)
[2016-05-09] MEDS: ALPRAZOLAM 0.5 MG TAB PO PRN (11:22)
[2016-05-09] MEDS ORDERED: Medication Special Instructions SCH (12:00)
[2016-05-09] MEDS: ENOXAPARIN 40 MG/0.4 ML PFS SQ SCH (16:55)
[2016-05-09] MEDS: NICOTINE 21 MG PATCH TOP SCH (20:52)
[2016-05-09] MEDS: ATORVASTATIN 40 MG TAB PO SCH (20:53)
[2016-05-09] MEDS: FAMOTIDINE 20 MG TAB PO SCH (20:53)
[2016-05-09] MEDS: MONTELUKAST SODIUM 10 MG TAB PO SCH (20:53)
[2016-05-09] MEDS: AZITHROMYCIN 250 MG TAB PO SCH (20:54)
--- NOTE | 2016-05-09 21:12 | GENMEDPROG ---
Subjective Note: Patient was seen briefly while she was walking the hallway with physical therapy. She was ambulating slowly but steadily. Breathing was somewhat labored but she was able to speak to me while she was walking. Was in good spirits today Currently: Reports: Cough (Still wet sounding but does not bring anything up), Wheezing (She feels her wheezing is at baseline), BARKER (Improved she is able to walk in the halls Improved), SOB (At baseline Improved), Tobacco Use/Hx, Ambulating (Has ambulated in the halls on oxygen). Denies: Nausea and Vomiting , Abdominal Pain, Fever/Chills, Chest Pain DVT Prophylaxis: Yes - Physical Examination Vital Signs and I&O: Last Vital Signs Temp 98.0 F 05/09/16 18:34 Pulse 75 05/09/16 20:00 Resp 16 05/09/16 20:00 BP 123/76 05/09/16 18:34 Pulse Ox 98 05/09/16 20:00 Oxygen Pulse Oxygen Saturation 98 O2 Device Nasal Cannula Oxygen Flow Rate 2 Fraction of Inspired Oxygen ( FIO2) Intake & Output 05/06/16 05/07/16 05/08/16 05/09/16 23:59 23:59 23:59 23:59 Intake Total 1688 994 978 920 Balance 1688 994 978 920 Patient's weight 55.157 kg 54.703 kg 54.573 kg General: Alert, Oriented x3, Cooperative, No acute distress HEENT: Normal Neck: Normal Trachea alignment, Normal inspection Respiratory: Other (Not examined today since she was in the hallway) Cardiovascular: Other (Not examined today). 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 We did talk about her elevated blood sugars briefly. She is presently on a sliding scale. Given that her hemoglobin A1c is 7.6 and that she will be on chronic steroids she likely needs more management. Will start Januvia and see how she does. I do not believe metformin will get her sugars down but it could be added later to Januvia. (2) Chronic pain Chronic G89.29 - OTHER CHRONIC PAIN Qualifiers: Chronic pain type: chronic pain syndrome Qualified Code(s): G89.4 - Chronic pain syndrome Comment/Plan: Patient is no longer on the fentanyl patch so this no longer has to be weaned. She is being treated with oral morphine. Dr. Mckeon has arranged pain management follow-up. (3) Arthritis Acute M19.90 - UNSPECIFIED OSTEOARTHRITIS, UNSPECIFIED SITE Comment/Plan: See above. (4) Acute exacerbation of chronic obstructive airways disease Acute J44.1 - CHRONIC OBSTRUCTIVE PULMONARY DISEASE W (ACUTE) EXACERBATION Comment/Plan: Steroids are being weaned. She is still on antibiotics. (5) Acute hypercapnic respiratory failure Acute J96.02 - ACUTE RESPIRATORY FAILURE WITH HYPERCAPNIA Comment/Plan: Management per Dr. Mckeon. (6) Anxiety Acute F41.9 - ANXIETY DISORDER, UNSPECIFIED Comment/Plan: Very anxious. Will continue home meds (7) HTN (hypertension) Acute I10 - ESSENTIAL (PRIMARY) HYPERTENSION Qualifiers: Hypertension type: essential hypertension Qualified Code(s): I10 - Essential (primary) hypertension Comment/Plan: Continue home medications
[2016-05-10] MEDS: CEFEPIME HYDROCHLORIDE 2 GM in D5W 100 ML IV SCH ×2 (00:50→11:17)
[2016-05-10] MEDS: MORPHINE 30 MG IMMED REL TAB PO PRN ×4 (01:01→20:22)
[2016-05-10] MEDS: REGULAR INSULIN 100 UNITS/ML - 3 ML VIAL SQ SCH ×4 (01:01→17:41)
[2016-05-10] MEDS: Albuterol/Ipratropium Neb 3 ML NEB NEB SCH ×4 (02:12→20:52)
[2016-05-10 04:19] LABS: ALLEN'S TEST PASS; TCO2 35.1 MMOL/L (23-27)
[2016-05-10 04:21] LABS: ABG Draw Site Right Radial; ABG Draw Tech BKL
[2016-05-10] MEDS: HYDROCODONE 5 MG/ACETAMIN 325 MG TAB PO PRN ×2 (04:56→17:41)
[2016-05-10] MEDS: METHYLPREDNISOLONE 40 MG/1 ML VIAL IV SCH ×3 (04:56→21:15)
[2016-05-10] MEDS: ALPRAZOLAM 0.5 MG TAB PO SCH ×3 (04:56→20:23)
[2016-05-10] MEDS: ACETAMINOPHEN 325 MG/TAB TABLET PO PRN ×2 (04:56→17:42)
[2016-05-10] MEDS: PANTOPRAZOLE 40 MG TAB PO SCH (05:22)
[2016-05-10] MEDS: SITAGLIPTIN 50 MG TAB PO SCH (05:22)
[2016-05-10 06:16] LABS: MPV 8.6 fL (7.4-10.4)
[2016-05-10 06:45] LABS: BLOOD UREA NITROGEN 21 MG/DL (7-17); CALCIUM 8.7 MG/DL (8.4-10.2); CALCULATED OSMOLALITY 267 MOs/Kg (270-290); CHLORIDE 98 mEq/L (98-107); GLUCOSE 163 MG/DL (70-99); SODIUM LEVEL 135 mEq/L (137-146)
[2016-05-10 07:19] LABS: SEG NEUTROPHIL 82 % (45-76)
--- NOTE | 2016-05-10 07:26 | PCM.PULM ---
Chief Complaint: Uneventful overnight Breathing is better today. less wheeze and cough. Has a complain of chronic back pain Current medication list and notes reviewed:yes - Physical Examination Vital Signs and I&O: Last Vital Signs Temp 97.4 F L 05/09/16 22:04 Pulse 66 05/10/16 05:34 Resp 18 05/10/16 05:34 BP 119/83 05/10/16 05:34 Pulse Ox 98 05/10/16 05:34 Oxygen Pulse Oxygen Saturation 98 O2 Device Nasal Cannula Oxygen Flow Rate 2 Fraction of Inspired Oxygen ( FIO2) Intake & Output 05/07/16 05/08/16 05/09/16 05/10/16 23:59 23:59 23:59 23:59 Intake Total 994 978 920 175 Balance 994 978 920 175 Patient's weight 54.703 kg 54.573 kg 55.338 kg General: Alert, Oriented x3, No acute distress Respiratory: Diminished, Wheezes (improved) Cardiovascular: Regular rate, Regular rate and rhythm, Normal S1, No Gallops, Rubs/Murmurs, Normal S2 GI: Normal bowel sounds, Soft, Non tender, No hepatospenomegaly, No masses Extremities/Musculoskeletal: Normal pulses Skin: Warm,Dry and Intact, No rashes, No significant lesion Neurological: Normal Steady Gait, Normal speech, Strength at 5/5 X4 ext, Cranial nerves 3-12 NL Psych/Mental Status: Normal Affect Result Diagrams: 05/10/16 05:00 05/10/16 05:00 Labs (last 24 hours): Laboratory Results - last 24 hr 05/09/16 05/10/16 05/10/16 20:11 00:55 04:15 WBC RBC Hgb Hct MCV MCH MCHC RDW Plt Count MPV Neut % (Auto) Lymph % (Auto) Rock % (Auto) Eos % (Auto) Baso % (Auto) Absolute Neuts (auto) Absolute Lymphs (auto) Seg Neuts % (Manual) Band Neutrophils % Lymphocytes % (Manual) Monocytes % (Manual) Metamyelocytes % Absolute Neutrophils Absolute Lymphocytes Nucl RBC Rel Cnt (Man) Platelet Estimate RBC Morphology Puncture Site Right radial pH 7.400 pCO2 54.0 H pO2 101.0 H HCO3 33.4 H Total CO2 35.1 H Base Excess 7.0 H FiO2 % 2 lpm Specimen Drawn By Bkl Sodium Potassium Chloride Carbon Dioxide Anion Gap BUN Creatinine Estimated GFR (MDRD) Glucose POC Capillary Glucose 246 H 243 H Hemoglobin A1c Calculated Osmolality Calcium 05/10/16 05/10/16 05/10/16 05:00 05:00 05:05 WBC 8.3 RBC 3.59 L Hgb 11.9 L Hct 35.3 L MCV 98 MCH 33.1 H MCHC 33.7 RDW 13.2 Plt Count 197 MPV 8.6 Neut % (Auto) Cancelled Lymph % (Auto) Cancelled Rock % (Auto) Cancelled Eos % (Auto) Cancelled Baso % (Auto) Cancelled Absolute Neuts (auto) Cancelled Absolute Lymphs (auto) Cancelled Seg Neuts % (Manual) 82 H Band Neutrophils % 4 Lymphocytes % (Manual) 9 L Monocytes % (Manual) 3 Metamyelocytes % 2 H Absolute Neutrophils 7.14 Absolute Lymphocytes 0.75 Nucl RBC Rel Cnt (Man) 3 Platelet Estimate Norm RBC Morphology Reviewed this admiss Puncture Site pH pCO2 pO2 HCO3 Total CO2 Base Excess FiO2 % Specimen Drawn By Sodium 135 L Potassium 4.5 Chloride 98 Carbon Dioxide 32 Anion Gap 10 BUN 21 H Creatinine 0.40 L Estimated GFR (MDRD) > 60 Glucose 163 H POC Capillary Glucose 176 H Hemoglobin A1c Calculated Osmolality 267 L Calcium 8.7 Lab/DI/Studies Reviewed: EKG: NSR, NO ST or ST wave changes noted Cxray: 1 view Chest x-ray was seen personally patient seems to have no acute infiltrate but hyperinflated lung cha were noted Medications Methylprednisolone Sodium Succinate (Solu-Medrol) 40 mg IV Q8H [facility] Stop: 05/19/16 21:59 Last Admin: 05/09/16 04:46 Dose: 40 mg Acetaminophen (Tylenol Suppository) 650 mg ND Q6H PRN PRN Reason: Mild Pain or Fever above 100.4 Stop: 05/18/16 18:58 Acetaminophen/Hydrocodone Bitart (Hydrocodone 5 Mg/Acetamin 325 Mg) 1 tab PO Q4H PRN PRN Reason: MODERATE PAIN Stop: 05/18/16 18:58 Last Admin: 05/05/16 13:41 Dose: 1 tab Docusate Sodium (Colace) 100 mg PO BID [facility] Stop: 05/18/16 16:59 Last Admin: 05/05/16 08:07 Dose: Not Given Enoxaparin Sodium (Lovenox) 40 mg SQ DAILY@1800 [facility] Stop: 05/19/16 19:59 Famotidine (Pepcid) 20 mg PO HS [facility] Stop: 05/18/16 16:59 Last Admin: 05/04/16 21:40 Dose: 20 mg Insulin Human Regular (Humulin R) 0 units SQ Q6 [facility] PRN Reason: Protocol Stop: 05/19/16 00:00 Last Admin: 05/05/16 12:23 Dose: 6 units Ipratropium [place] (Atrovent) 2.5 ml NEB RTQ8 [facility] Stop: 05/19/16 00:00 Last Admin: 05/05/16 09:35 Dose: 2.5 ml Lact Acid/Bifidobact/Lact [place]/Streptoc Th (Miley Q) 1 tab PO DAILY@1200 [facility] Stop: 05/18/16 16:59 Last Admin: 05/05/16 08:05 Dose: 1 tab Albuterol/Ipratropium (Duoneb) 3 ml NEB RTQ6 [facility] Stop: 05/22/16 13:59 Acetaminophen (Tylenol Tablet) 650 mg PO Q6H PRN PRN Reason: Mild Pain or Fever above 100.4 Stop: 05/18/16 18:58 Al Hydrox/Mg Hydrox/Simethicone (Maalox Plus, Mylanta) 30 ml PO Q3H PRN PRN Reason: Heartburn or Indigestion Stop: 05/18/16 18:58 Alprazolam (Xanax) 0.5 mg PO Q6H PRN PRN Reason: Anxiety Stop: 05/18/16 18:58 Alprazolam (Xanax) 1 mg PO TID [facility] Stop: 05/18/16 16:59 Last Admin: 05/05/16 13:35 Dose: 1 mg Benzonatate (Tessalon) 100 mg PO Q8 PRN PRN Reason: Cough Stop: 05/18/16 18:58 Budesonide (Pulmicort) 0.5 mg NEB RTBID [facility] Stop: 05/19/16 07:59 Last Admin: 05/05/16 09:42 Dose: 0.5 mg Cefepime HCl 2 gm/ Dextrose 100 mls @ 200 mls/hr IV Q12H [facility] Stop: 05/11/16 19:59 Last Admin: 05/05/16 08:05 Dose: 200 mls/hr Chlorphenir/Hydrocodone Polistirex (Tussionex) 5 ml PO Q12H PRN PRN Reason: Cough Stop: 05/18/16 18:58 Losartan Potassium (Cozaar) 50 mg PO DAILY [facility] Stop: 05/18/16 16:59 Last Admin: 05/05/16 08:09 Dose: 50 mg Lubiprostone (Amitiza) 24 mcg PO BID [facility] Stop: 05/18/16 16:59 Last Admin: 05/05/16 08:06 Dose: 24 mcg Montelukast Sodium (Singulair) 10 mg PO HS [facility] Stop: 05/18/16 16:59 Last Admin: 05/04/16 21:40 Dose: 10 mg Morphine Sulfate (Msir (Immediate Release Morphine Tab)) 60 mg PO Q6H PRN PRN Reason: Severe Pain Stop: 05/11/16 16:59 Last Admin: 05/05/16 09:17 Dose: 60 mg Nicotine (Nicoderm) 21 mg TOP Q24H [facility] Stop: 05/18/16 20:59 Last Admin: 05/04/16 21:40 Dose: 21 mg Pantoprazole Sodium (Protonix) 40 mg PO 0600 [facility] Stop: 05/19/16 05:59 Last Admin: 05/05/16 05:49 Dose: 40 mg Zolpidem Tartrate (Ambien) 5 mg PO HS PRN PRN Reason: Sleep or Insomnia Stop: 05/18/16 18:58 Promethazine HCl (Phenergan) 12.5 mg IV Q4H PRN PRN Reason: NAUSEA / VOMITING Stop: 05/18/16 18:58 Fluconazole (Diflucan) 100 mg PO DAILY [facility] Stop: 05/12/16 16:59 Last Admin: 05/05/16 17:58 Dose: 100 mg Chest x-ray was seen personally - Assessment/Plan (1) Acute hypercapnic respiratory failure Acute J96.02 - ACUTE RESPIRATORY FAILURE WITH HYPERCAPNIA Comment/Plan: Patient remains on IV Solu-Medrol 40 mg q.8 hours continue to have baseline wheezing and tightness in her chest she remains on antibiotics and has been ambulating she has been complaining of back pain which was expected as her pain medication regimen has been significantly decreased she is going to be in some pain at least for the near future. I would continue morphine at this dose however would try to cut down once the patient is used to a lower dose of morphine and being without fentanyl patch. There is a definite attempt on our part to cut down the morphine as quickly as possible without causing significant rebound. Continue ambulation continue supportive care DVT and GI prophylaxis (2) Acute exacerbation of chronic obstructive airways disease Acute J44.1 - CHRONIC OBSTRUCTIVE PULMONARY DISEASE W (ACUTE) EXACERBATION Comment/Plan: Very slow improvement. Would continue current medication therapy with IV antibiotics, start tapering IV steroids, DVT/GI prophylaxis. Continue full supportive care (3) Anxiety Acute F41.9 - ANXIETY DISORDER, UNSPECIFIED Comment/Plan: Continue Xanax scheduled and prn (4) Chronic pain Chronic G89.29 - OTHER CHRONIC PAIN chronic pain syndrome G89.4 - Chronic pain syndrome Comment/Plan: Patient gives a complaining of pain however I would continue the 40 mg of morphine Q 4 hours as per patient's request hours and would arrange for patient to have a morphine sulfate pump as an outpatient by the pain physician continue other supportive care long-term prognosis guarded . I had a very prolonged discussion with the patient's and herself regarding her pain issues and I told them that she just cannot be on 60 mg every 4 hours and has to be cut down every month so that eventually she can only stay at less than 100 mg per day of morphine and would keep her off off the fentanyl patch. I had a prolonged discussion with Dr. Pendleton regarding this patient's discharge who will be discharging this patient tomorrow I personally saw and evaluated the patient.: Yes Case Care Discussed with: Patient, Consultants, Family, Nursing Staff Education/Counseling Given To: Patient, Family Member Education/Counseling Given Regarding: Diagnosis, Treatment, Prognosis, Follow Up , Disposition Plan
--- NOTE | 2016-05-10 07:40 | DIRPT ---
CLINICAL DATA: Respiratory failure EXAM: PORTABLE CHEST 1 VIEW COMPARISON: Portable chest x-ray of May 04, [address] scan of December 26, 2015. FINDINGS: The lungs are remain mildly hyperinflated. There is no focal infiltrate. The interstitial markings are coarse in the lower lobes but this is a stable finding. The heart and pulmonary vascularity are normal. The mediastinum is normal in width. There is no pleural effusion or pneumothorax. The bony thorax is unremarkable. IMPRESSION: There is no acute cardiopulmonary abnormality. There are stable emphysematous changes bilaterally. Electronically Signed By: Alvin Hsieh M.D. On: 05/10/2016 07:38
[2016-05-10] MEDS: BUDESONIDE 0.5 MG NEB NEB SCH ×2 (07:50→20:53)
[2016-05-10] MEDS: FLUCONAZOLE 100 MG TAB PO SCH (08:09)
[2016-05-10] MEDS: DILTIAZEM HCL 120 MG CAPSULE.CR PO SCH (08:09)
[2016-05-10] MEDS: Docusate Sodium 100 MG CAP PO SCH ×2 (08:09→20:23)
[2016-05-10] MEDS: LOSARTAN POTASSIUM 50 MG TAB PO SCH (08:09)
[2016-05-10] MEDS: LUBIPROSTONE 24 MCG CAP PO SCH ×2 (08:09→20:23)
[2016-05-10] MEDS: PROBIOTIC BLEND TAB PO SCH (08:10)
[2016-05-10] MEDS: BENZONATATE 100 MG PERLES PO PRN (11:19)
--- NOTE | 2016-05-10 14:45 | GENMEDPROG ---
Subjective Note: Patient in bed responsive follows commands. Breathing improved, still dyspneic with minimal physical exertion still coughing producing fair amount thick sputum no hemoptysis. Patient still reports significant amount of pain and stays that she has only been able to sleep about an hour Notes Reviewed: Yes Events from last night noted and discussed with Clinical Staff Current Medication List: Reviewed Currently: Reports: Cough (Still wet sounding but does not bring anything up), Wheezing (She feels her wheezing is at baseline), BARKER (Improved she is able to walk in the halls Improved), SOB (At baseline Improved), Tobacco Use/Hx, Ambulating (Has ambulated in the halls on oxygen). Denies: Nausea and Vomiting , Abdominal Pain, Fever/Chills, Chest Pain DVT Prophylaxis: Yes - Physical Examination Vital Signs and I&O: Last Vital Signs Temp 98.1 F 05/10/16 10:45 Pulse 89 05/10/16 10:45 Resp 24 05/10/16 10:45 BP 123/86 05/10/16 10:45 Pulse Ox 100 05/10/16 10:45 Oxygen Pulse Oxygen Saturation 100 O2 Device Nasal Cannula Oxygen Flow Rate 2 Fraction of Inspired Oxygen ( FIO2) Intake & Output 05/07/16 05/08/16 05/09/16 05/10/16 23:59 23:59 23:59 23:59 Intake Total 994 978 920 655 Balance 994 978 920 655 Patient's weight 54.703 kg 54.573 kg 55.338 kg General: Alert, Oriented x3, Cooperative, No acute distress HEENT: Normal, PERRLA, EOMI, Anicteric Sclera Neck: Normal Trachea alignment, Normal inspection, Limited range of motion Lymphatics: Normal Respiratory: Diminished, Rhonchi, Other (Not examined today since she was in the hallway) Cardiovascular: Regular rate, Normal S1, Normal S2, Murmurs, Other (Not examined today). negative: LE Edema GI: Normal bowel sounds, Soft, Non tender, No hepatospenomegaly, No masses, Other (Not examined today since she was walking in the hallway) Extremities/Musculoskeletal: Swelling, DJD. negative: Normal pulses (Decreased) , Edema Skin: Warm,Dry and Intact, No rashes, No breakdown, No significant lesion Neurological: Normal speech, Normal tone Psych/Mental Status: Anxious (Appears calm but sentences are spoken very quickly ) Lab/DI/Studies Reviewed: Allergies naproxen Allergy (Severe, Verified 05/04/16 18:12) Anaphylaxis* pregabalin [From Lyrica] Allergy (Severe, Verified 05/04/16 18:12) Hives* bupropion [From Wellbutrin SR] Adverse Reaction (Verified 05/04/16 18:12) Anxiety duloxetine HCl [From Cymbalta] Adverse Reaction (Verified 05/04/16 18:12) Nausea/Vomiting 05/10/16 05:00 05/10/16 05:00 Last Vital Signs Temp 96.7 F L 05/11/16 09:51 Pulse 96 05/11/16 09:51 Resp 20 05/11/16 09:51 BP 150/95 05/11/16 09:51 Pulse Ox 95 05/11/16 09:51 - Assessment (1) Acute exacerbation of chronic obstructive airways disease Acute J44.1 - CHRONIC OBSTRUCTIVE PULMONARY DISEASE W (ACUTE) EXACERBATION Comment/Plan: Continue IV steroids nebulized bronchodilators and supplemental O2. (2) Acute hypercapnic respiratory failure Acute J96.02 - ACUTE RESPIRATORY FAILURE WITH HYPERCAPNIA Comment/Plan: Management per Dr. Mckeon. (3) Chronic pain Chronic G89.29 - OTHER CHRONIC PAIN Qualifiers: Chronic pain type: chronic pain syndrome Qualified Code(s): G89.4 - Chronic pain syndrome Comment/Plan: Continue narcotic analgesics. Follow up with pain clinic (4) GERD (gastroesophageal reflux disease) Acute K21.9 - GASTRO-ESOPHAGEAL REFLUX DISEASE WITHOUT ESOPHAGITIS Qualifiers: Esophagitis presence: esophagitis presence not specified Qualified Code(s) : K21.9 - Gastro-esophageal reflux disease without esophagitis Comment/Plan: Patient with a history of gastroesophageal reflux disease continue PPI (5) HTN (hypertension) Acute I10 - ESSENTIAL (PRIMARY) HYPERTENSION Qualifiers: Hypertension type: essential hypertension Qualified Code(s): I10 - Essential (primary) hypertension Comment/Plan: Continue home medications (6) Constipation due to opioid therapy Chronic K59.03 - DRUG INDUCED CONSTIPATION; T40.2X5A - ADVERSE EFFECT OF OTHER OPIOIDS, INITIAL ENCOUNTER Comment/Plan: Continue bowel regimen Case Care Discussed with: Patient, Consultants, Family, Nursing Staff Education/Counseling Given To: Patient Education/Counseling Given Regarding: Diagnosis, Treatment, Prognosis, Follow Up Total Time: 45 min . Critical Care: No Code: 05402 (12+)
[2016-05-10] MEDS: ENOXAPARIN 40 MG/0.4 ML PFS SQ SCH (17:41)
[2016-05-10] MEDS: ATORVASTATIN 40 MG TAB PO SCH (20:23)
[2016-05-10] MEDS: FAMOTIDINE 20 MG TAB PO SCH (20:23)
[2016-05-10] MEDS: MONTELUKAST SODIUM 10 MG TAB PO SCH (20:23)
[2016-05-10] MEDS: NICOTINE 21 MG PATCH TOP SCH (20:23)
[2016-05-10] MEDS: AZITHROMYCIN 250 MG TAB PO SCH (20:23)
[2016-05-10] MEDS ORDERED: NS 500 ML IV ONE (21:10)
[2016-05-11] MEDS: CEFEPIME HYDROCHLORIDE 2 GM in D5W 100 ML IV SCH (00:06)
[2016-05-11] MEDS: REGULAR INSULIN 100 UNITS/ML - 3 ML VIAL SQ SCH ×2 (00:17→05:48)
[2016-05-11] MEDS: Albuterol/Ipratropium Neb 3 ML NEB NEB SCH ×2 (02:24→08:34)
[2016-05-11] MEDS: MORPHINE 30 MG IMMED REL TAB PO PRN ×2 (02:26→09:53)
[2016-05-11] MEDS: HYDROCODONE 5 MG/ACETAMIN 325 MG TAB PO PRN (05:47)
[2016-05-11] MEDS: PANTOPRAZOLE 40 MG TAB PO SCH (05:47)
[2016-05-11] MEDS: ALPRAZOLAM 0.5 MG TAB PO SCH (05:48)
[2016-05-11] MEDS: METHYLPREDNISOLONE 40 MG/1 ML VIAL IV SCH (05:48)
[2016-05-11] MEDS: SITAGLIPTIN 50 MG TAB PO SCH (05:53)
--- NOTE | 2016-05-11 07:56 | PCM.PULM ---
Chief Complaint: Uneventful overnight Feeling better breathing is fair this morning. She is going home soon. Medication list and notes reviewed:yes - Physical Examination Vital Signs and I&O: Last Vital Signs Temp 97.9 F 05/11/16 06:01 Pulse 71 05/11/16 06:01 Resp 20 05/11/16 06:01 BP 117/86 05/11/16 06:01 Pulse Ox 99 05/11/16 06:01 Oxygen Pulse Oxygen Saturation 99 O2 Device Nasal Cannula Oxygen Flow Rate 2 Fraction of Inspired Oxygen ( FIO2) Intake & Output 05/08/16 05/09/16 05/10/16 05/11/16 23:59 23:59 23:59 23:59 Intake Total 623 532 5684 225 Balance 634 404 6066 225 Patient's weight 54.573 kg 55.338 kg 56.047 kg General: Alert, Oriented x3, Cooperative, No acute distress Respiratory: Diminished, Wheezes (Occasional bilateral) Cardiovascular: Regular rate, Regular rate and rhythm, Normal S1, No Gallops, Rubs/Murmurs, Normal S2 GI: Normal bowel sounds, Soft, Non tender, No masses Extremities/Musculoskeletal: Normal pulses Skin: Warm,Dry and Intact, No rashes, No breakdown, No significant lesion Neurological: Normal Steady Gait, Normal speech, Normal tone, Cranial nerves 3- 12 NL Psych/Mental Status: Appropriate Result Diagrams: 05/10/16 05:00 05/10/16 05:00 Labs (last 24 hours): Laboratory Results - last 24 hr 05/11/16 05/11/16 00:14 05:27 POC Capillary Glucose 254 H 164 H Lab/DI/Studies Reviewed: EKG: NSR, NO ST or ST wave changes noted Medications Famotidine (Pepcid) 20 mg PO HS [facility] Stop: 01/09/16 20:59 Last Admin: 12/29/15 20:04 Dose: 20 mg Acetaminophen (Tylenol Suppository) 650 mg GA Q6H PRN; Protocol PRN Reason: Mild Pain or Fever above 100.4 Stop: 01/09/16 16:59 Acetaminophen (Tylenol Tablet) 650 mg PO Q6H PRN; Protocol PRN Reason: Mild Pain or Fever above 100.4 Stop: 01/09/16 16:59 Last Admin: 12/28/15 20:39 Dose: 650 mg Acetaminophen (Tylenol Suppository) 650 mg GA Q6H PRN PRN Reason: Mild Pain or Fever above 100.4 Stop: 05/18/16 18:58 Acetaminophen/Hydrocodone Bitart (Hydrocodone 5 Mg/Acetamin 325 Mg) 1 tab PO Q4H PRN PRN Reason: MODERATE PAIN Stop: 05/18/16 18:58 Last Admin: 05/05/16 13:41 Dose: 1 tab Docusate Sodium (Colace) 100 mg PO BID [facility] Stop: 05/18/16 16:59 Last Admin: 05/05/16 08:07 Dose: Not Given Enoxaparin Sodium (Lovenox) 40 mg SQ DAILY@1800 [facility] Stop: 05/19/16 19:59 Insulin Human Regular (Humulin R) 0 units SQ Q6 [facility] PRN Reason: Protocol Stop: 05/19/16 00:00 Last Admin: 05/05/16 12:23 Dose: 6 units Lact Acid/Bifidobact/Lact [place]/Streptoc Th (Miley Q) 1 tab PO DAILY@1200 [facility] Stop: 05/18/16 16:59 Last Admin: 05/05/16 08:05 Dose: 1 tab Albuterol/Ipratropium (Duoneb) 3 ml NEB RTQ6 [facility] Stop: 05/22/16 13:59 Al Hydrox/Mg Hydrox/Simethicone (Maalox Plus, Mylanta) 30 ml PO Q3H PRN PRN Reason: Heartburn or Indigestion Stop: 01/09/16 16:59 Benzonatate (Tessalon) 200 mg PO TID PRN PRN Reason: Cough - First Option Stop: 01/09/16 16:59 Enoxaparin Sodium (Lovenox) 40 mg SQ 1800 [facility] Stop: 01/09/16 17:59 Last Admin: 12/29/15 17:27 Dose: 40 mg Insulin Human Regular (Humulin R) 0 units SQ ACHS [facility] PRN Reason: Protocol Stop: 01/09/16 16:59 Last Admin: 12/30/15 06:15 Dose: Not Given Losartan Potassium (Cozaar) 50 mg PO QAM [facility] Stop: 01/09/16 08:59 Last Admin: 12/30/15 08:26 Dose: 50 mg Lubiprostone (Amitiza) 24 mcg PO BID [facility] Stop: 01/09/16 20:59 Last Admin: 12/30/15 08:26 Dose: 24 mcg Magnesium Hydroxide (Milk Of Magnesia) 30 ml PO DAILY PRN PRN Reason: Constipation - First Option Stop: 01/09/16 16:59 Last Admin: 12/29/15 08:52 Dose: 30 ml Nicotine (Nicoderm) 21 mg TOP Q24H [facility] Stop: 01/09/16 16:59 Last Admin: 12/30/15 08:26 Dose: 21 mg Pantoprazole Sodium (Protonix) 40 mg PO 0600 [facility] Stop: 01/10/16 05:59 Last Admin: 12/30/15 06:14 Dose: 40 mg Acetaminophen (Tylenol Tablet) 650 mg PO Q6H PRN PRN Reason: Mild Pain or Fever above 100.4 Stop: 05/18/16 18:58 Al Hydrox/Mg Hydrox/Simethicone (Maalox Plus, Mylanta) 30 ml PO Q3H PRN PRN Reason: Heartburn or Indigestion Stop: 05/18/16 18:58 Alprazolam (Xanax) 0.5 mg PO Q6H PRN PRN Reason: Anxiety Stop: 05/18/16 18:58 Benzonatate (Tessalon) 100 mg PO Q8 PRN PRN Reason: Cough Stop: 05/18/16 18:58 Budesonide (Pulmicort) 0.5 mg NEB RTBID [facility] Stop: 05/19/16 07:59 Last Admin: 05/05/16 09:42 Dose: 0.5 mg Cefepime HCl 2 gm/ Dextrose 100 mls @ 200 mls/hr IV Q12H [facility] Stop: 05/11/16 19:59 Last Admin: 05/05/16 08:05 Dose: 200 mls/hr Chlorphenir/Hydrocodone Polistirex (Tussionex) 5 ml PO Q12H PRN PRN Reason: Cough Stop: 05/18/16 18:58 Losartan Potassium (Cozaar) 50 mg PO DAILY [facility] Stop: 05/18/16 16:59 Last Admin: 05/05/16 08:09 Dose: 50 mg Lubiprostone (Amitiza) 24 mcg PO BID [facility] Stop: 05/18/16 16:59 Last Admin: 05/05/16 08:06 Dose: 24 mcg Montelukast Sodium (Singulair) 10 mg PO HS [facility] Stop: 05/18/16 16:59 Last Admin: 05/04/16 21:40 Dose: 10 mg Nicotine (Nicoderm) 21 mg TOP Q24H [facility] Stop: 05/18/16 20:59 Last Admin: 05/04/16 21:40 Dose: 21 mg Pantoprazole Sodium (Protonix) 40 mg PO 0600 [facility] Stop: 05/19/16 05:59 Last Admin: 05/05/16 05:49 Dose: 40 mg Zolpidem Tartrate (Ambien) 5 mg PO HS PRN PRN Reason: Sleep or Insomnia Stop: 05/18/16 18:58 Promethazine HCl (Phenergan) 12.5 mg IV Q4H PRN PRN Reason: NAUSEA / VOMITING Stop: 05/18/16 18:58 Fluconazole (Diflucan) 100 mg PO DAILY [facility] Stop: 05/12/16 16:59 Last Admin: 05/05/16 17:58 Dose: 100 mg Methylprednisolone Sodium Succinate (Solu-Medrol) 40 mg IV Q8H [facility] Stop: 05/19/16 21:59 Last Admin: 05/06/16 05:05 Dose: 40 mg Fentanyl (Duragesic) 50 mcg TOP Q72H [facility] Stop: 05/19/16 16:59 Last Admin: 05/05/16 21:27 Dose: 50 mcg Alprazolam (Xanax) 1 mg PO TID [facility] Stop: 05/18/16 16:59 Last Admin: 05/06/16 05:05 Dose: 1 mg Morphine Sulfate (Msir (Immediate Release Morphine Tab)) 60 mg PO Q6H PRN PRN Reason: Severe Pain Stop: 05/13/16 17:49 Last Admin: 05/09/16 01:34 Dose: 60 mg - Assessment/Plan (1) Acute hypercapnic respiratory failure Chronic J96.02 - ACUTE RESPIRATORY FAILURE WITH HYPERCAPNIA Comment/Plan: Patient is going to be on prednisone 40 mg and I would see the patient in my office within a week or so after her discharge she is going to take 40 mg of morphine sulfate p.o. q.4 hours p.r.n. that is down from 60 a few weeks ago and she has been off off fentanyl patch at this time. Would arrange for her to be seen by a pain specialist for possible morphine pump. Patient has minimal wheezing and hopefully the prednisone will help her continue other supportive care and would follow the patient as an outpatient continue oxygen and nebulizers (2) Anxiety Acute F41.9 - ANXIETY DISORDER, UNSPECIFIED Comment/Plan: Continue Xanax scheduled and prn (3) Chronic pain Chronic G89.29 - OTHER CHRONIC PAIN chronic pain syndrome G89.4 - Chronic pain syndrome Comment/Plan: Patient gives a complaining of pain however I would continue the 40 mg of morphine Q 4 hours as per patient's request and would arrange for patient to have a morphine sulfate pump as an outpatient by the pain physician continue other supportive care long-term prognosis guarded . The morphine has to be cut down every month so that eventually she can only stay at less than 100 mg per day of morphine and would keep her off off the fentanyl patch. I had a prolonged discussion with Dr. Pendleton regarding this patient's discharge who will be discharging this patient
[2016-05-11] MEDS: DILTIAZEM HCL 120 MG CAPSULE.CR PO SCH (08:18)
[2016-05-11] MEDS: LUBIPROSTONE 24 MCG CAP PO SCH (08:18)
[2016-05-11] MEDS: LOSARTAN POTASSIUM 50 MG TAB PO SCH (08:19)
[2016-05-11] MEDS: Docusate Sodium 100 MG CAP PO SCH (08:19)
[2016-05-11] MEDS: FLUCONAZOLE 100 MG TAB PO SCH (08:19)
[2016-05-11] MEDS: PROBIOTIC BLEND TAB PO SCH (08:19)
[2016-05-11] MEDS: BUDESONIDE 0.5 MG NEB NEB SCH (08:34)
[2016-05-11 09:53] VITALS: BP 150/95; PULSE 96; TEMP 96.7
--- NOTE | 2016-05-11 10:43 | PCM.DCS92 ---
- Final/Secondary Discharge Diagnosis (1) Acute exacerbation of chronic obstructive airways disease Resolved J44.1 - CHRONIC OBSTRUCTIVE PULMONARY DISEASE W (ACUTE) EXACERBATION Present on Admission: Yes Comment: Continue po steroids nebulized bronchodilators and supplemental O2. (2) Acute hypercapnic respiratory failure Chronic J96.02 - ACUTE RESPIRATORY FAILURE WITH HYPERCAPNIA Present on Admission: Yes Comment: Management per Dr. Mckeon. (3) Chronic pain Chronic G89.29 - OTHER CHRONIC PAIN Present on Admission: Yes chronic pain syndrome G89.4 - Chronic pain syndrome Comment: Continue narcotic analgesics. Follow up with pain clinic (4) GERD (gastroesophageal reflux disease) Chronic K21.9 - GASTRO-ESOPHAGEAL REFLUX DISEASE WITHOUT ESOPHAGITIS Present on Admission: Yes esophagitis presence not specified K21.9 - Gastro-esophageal reflux disease without esophagitis Comment: Patient with a history of gastroesophageal reflux disease continue PPI (5) HTN (hypertension) Chronic I10 - ESSENTIAL (PRIMARY) HYPERTENSION Present on Admission: Yes essential hypertension I10 - Essential (primary) hypertension Comment: Continue home medications (6) Constipation due to opioid therapy Chronic K59.03 - DRUG INDUCED CONSTIPATION; T40.2X5A - ADVERSE EFFECT OF OTHER OPIOIDS, INITIAL ENCOUNTER Comment: Continue bowel regimen Discharge Disposition: Home Cognitive Discharge Status: Unimpaired Fuctional Discharge Status: Walker Assistance Home Medications / New Prescriptions: New Amoxicillin/Potassium Clav [Augmentin 875-125 Tablet] 1 each PO TIDAC #21 tablet L.acidoph/B.animalis/B.longum [Florajen3 Capsule] 460 mg PO DAILY #60 capsule Levofloxacin [Levaquin] 750 mg PO DAILY #5 tablet Guaifenesin [Mucinex] 1,200 mg PO BID #20 tbmp.12hr Calcium Carbonate + Vitamin D [Oscal with Vitamin D] 500 mg PO BID #60 tab Prednisone 10 mg PO DAILY #30 tab.ds.pk Continue Fentanyl [Duragesic 100 mcg/hr patch] 100 mcg TOP Q48H Alprazolam [Xanax] 1 mg PO TID Nebulizer [Erapid Nebulizer] 1 each MC .UNKNOWN Famotidine 20 mg PO HS Alendronate Sodium 70 mg PO .WEEKLY ON RYAN Theophylline Anhydrous [Cecilio-24] 200 mg PO DAILY Losartan Potassium 50 mg PO DAILY Budesonide/Formoterol Fumarate [Symbicort 160-4.5 Mcg Inhaler] 2 puff INH BID Aclidinium [place] [Tudorza Pressair] 1 puff INH BID Albuterol/Ipratropium Neb [Duoneb] 3 ml NEB Q6H PRN PRN Reason: Shortness Of Breath Dexlansoprazole [Dexilant] 60 mg PO DAILY Morphine Sulfate 60 mg PO Q4H PRN PRN Reason: Pain Lubiprostone [Amitiza] 24 mcg PO BID Montelukast Sodium [Singulair] 10 mg PO DAILY Nitroglycerin [Nitrostat] 0.4 mg SL Q5MX3 PRN PRN Reason: Chest Pain Or Discomfort Levalbuterol [Xopenex 0.63 mg] 0.63 mg NEB Q6H PRN PRN Reason: Wheezing Diltiazem HCl [Cartia Xt] 120 mg PO DAILY Atorvastatin Calcium [Lipitor] 40 mg PO QHS Discontinued Levofloxacin [Levaquin] 750 mg PO DAILY #5 tablet Docusate Sodium [Colace] 100 mg PO BID Prednisone [Deltasone] 40 mg PO DAILY Fluconazole [Diflucan] 100 mg PO DAILY O2 Device: Nasal Cannula Oxygen to be used after Discharge: Continuous Diet at Discharge: Heart Healthy, Low Salt, Diabetic, High Fiber Activity: As Tolerated, Limited Call Office For: Worsening Symptoms, Fever over 101 F Discontinue use of:: Alcohol, All Illegal Substances, All Types of Tobacco - DC Summary Notes Hospital Course Note:: Discharge summary on patient named MALDONADO POTTS GRAVDRE admitted to [facility] on 05/04/16 by Car Mckeon MD. Date of discharge is []. Patient has initially presented to her college admissions counselor's office for evaluation of worsening difficulties breathing chest tightness wheezes cough and phlegm production. Please refer to the admission note for further details. Patient was admitted to general medical floor, treatment of IV steroids IV antibiotics and nebulized bronchodilators was instituted. Outpatient regimen for chronic medical conditions was continued. Chest x-ray obtained during hospital stay showed chronic emphysema but no active disease. Patient pulmonary status has very slowly but progressively improved and stabilized and she was gradually weaned off IV steroids. Chronic pain syndrome management seemed to be significant issue during this hospital stay and patient required adjustment in her narcotic analgesics. Recommendation by consultants and primary team was made that patient sees specialty [facility] for further medication adjustments and possibly narcotic pump. Duragesic patch Q 48 hours was continued during hospital stay in addition to her morphine. Labs were monitored closely her CBC remained normal so did the kidney function and electrolytes. Her activity level was gradually advanced and by the time of discharge patient is reason tear to her P hospitalization functional status, been able to walk short distance with a walker. She was gradually weaned down to 2 L nasal cannula. It was felt that by May 11 patient has reached maximum benefit of inpatient therapy and after being cleared for discharge by her college admissions counselor in clinically stable improved condition she has been discharged home to the care of the family and her PCP and her college admissions counselor. Total Time: 40 min . Code: 46247 (>30min.) - Physical Exam Vital Signs: Last Vital Signs Temp 96.7 F L 05/11/16 09:51 Pulse 96 05/11/16 09:51 Resp 20 05/11/16 09:51 BP 150/95 05/11/16 09:51 Pulse Ox 95 05/11/16 09:51 Oxygen Pulse Oxygen Saturation 95 O2 Device Nasal Cannula Oxygen Flow Rate 2 Fraction of Inspired Oxygen ( FIO2) Constitutional: Alert, Agitated, Confused, Well nourished. negative: Well appearing Oriented to: Time, Person, Place - HEENT Head: Normal (normocephalic, atraumatic.), Other (No cervical lymphadenopathy. No supraclavicular lymphadenopathy. Neck: No palpable mass, supple , trachea midline.) Eye: Normal (pupils equal, reactive to light, and round; EOMI, Sclera white) Oropharynx: Normal (Pharynx: Moist without exudate,Gums-no swelling, No oropharyngeal lesions or erythema, Mucous membranes are dry.) ENT EAC: Normal TMJ: Normal Nose: No Symptoms Reported (septum midline, Nares patent, without discharge or bleeding.) - Respiratory/Cardiovascular Respiratory: Diminished, Rhonchi, Other (Not examined today since she was in the hallway) Cardiovascular: Normal, Systolic murmur - GI Auscultation: Normal (normal active sounds) Palpation: Normal (Soft,non distended,nontender. No hepatosplenomegaly.) Tenderness: Non tender (No rebound or guarding) Bucio's Sign: Negative Rectal Exam: Deferred - Exam Deferred: Yes - Musculoskeletal Back: Thoracic TTP, Lumbar TTP Extremities: Normal (Normal tone, DP pulses 2+ bilaterally, No cyanosis or edema bilaterally, FROM bilaterally.), Cyanosis - Integumentary Skin: Normal, Warm, Dry Lymphatics: Normal - Neurologic Memory Impaired: Normal Motor Function: Abnormal Cranial Nerve: Normal Cerebellar: Normal, Ataxia Mood Description: Anxious, Agitated Thought: Flight of Ideas, Rambling Conversation Perception: Normal - Other Exam Other Exam Findings: Allergies naproxen Allergy (Severe, Verified 05/04/16 18:12) Anaphylaxis* pregabalin [From Lyrica] Allergy (Severe, Verified 05/04/16 18:12) Hives* bupropion [From Wellbutrin SR] Adverse Reaction (Verified 05/04/16 18:12) Anxiety duloxetine HCl [From Cymbalta] Adverse Reaction (Verified 05/04/16 18:12) Nausea/Vomiting Last Vital Signs Temp 96.7 F L 05/11/16 09:51 Pulse 96 05/11/16 09:51 Resp 20 05/11/16 09:51 BP 150/95 05/11/16 09:51 Pulse Ox 95 05/11/16 09:51 Discharge Home Medication List Fentanyl [Duragesic 100 mcg/hr patch] 100 mcg TOP Q48H 05/27/12 [History Confirmed 05/04/16] Alprazolam [Xanax] 1 mg PO TID 12/02/14 [History Confirmed 05/04/16] Famotidine 20 mg PO HS 12/02/14 [History Confirmed 05/04/16] Nebulizer [Erapid Nebulizer] 1 each MC .UNKNOWN 12/02/14 [History Confirmed ] Aclidinium [place] [Tudorza Pressair] 1 puff INH BID 12/26/15 [History Confirmed 05/04/16] Albuterol/Ipratropium Neb [Duoneb] 3 ml NEB Q6H PRN 12/26/15 [History Confirmed 05/04/16] Alendronate Sodium 70 mg PO .WEEKLY ON RYAN 12/26/15 [History Confirmed 05/04/16] Budesonide/Formoterol Fumarate [Symbicort 160-4.5 Mcg Inhaler] 2 puff INH BID [History Confirmed 05/04/16] Dexlansoprazole [Dexilant] 60 mg PO DAILY 12/26/15 [History Confirmed 05/04/16] Losartan Potassium 50 mg PO DAILY 12/26/15 [History Confirmed 05/04/16] Lubiprostone [Amitiza] 24 mcg PO BID 12/26/15 [History Confirmed 05/04/16] Morphine Sulfate 60 mg PO Q4H PRN 12/26/15 [History Confirmed 05/04/16] Theophylline Anhydrous [Cecilio-24] 200 mg PO DAILY 12/26/15 [History Confirmed ] Atorvastatin Calcium [Lipitor] 40 mg PO QHS 05/04/16 [History Confirmed 05/04/16 ] Diltiazem HCl [Cartia Xt] 120 mg PO DAILY 05/04/16 [History Confirmed 05/04/16] Levalbuterol [Xopenex 0.63 mg] 0.63 mg NEB Q6H PRN 05/04/16 [History Confirmed 05/04/16] Montelukast Sodium [Singulair] 10 mg PO DAILY 05/04/16 [History Confirmed ] Nitroglycerin [Nitrostat] 0.4 mg SL Q5MX3 PRN 05/04/16 [History Confirmed ] Amoxicillin/Potassium Clav [Augmentin 875-125 Tablet] 1 each PO TIDAC #21 tablet 05/11/16 [Rx] Calcium Carbonate + Vitamin D [Oscal with Vitamin D] 500 mg PO BID #60 tab 05/11 [Rx] Guaifenesin [Mucinex] 1,200 mg PO BID #20 tbmp.12hr 05/11/16 [Rx] L.acidoph/B.animalis/B.longum [Florajen3 Capsule] 460 mg PO DAILY #60 capsule [Rx] Levofloxacin [Levaquin] 750 mg PO DAILY #5 tablet 05/11/16 [Rx] Prednisone 10 mg PO DAILY #30 tab.ds.pk 05/11/16 [Rx] New Discharge Medications (Rx) Amoxicillin/Potassium Clav [Augmentin 875-125 Tablet] 1 each PO TIDAC #21 tablet 05/11/16 [Rx] Calcium Carbonate + Vitamin D [Oscal with Vitamin D] 500 mg PO BID #60 tab 05/11 [Rx] Guaifenesin [Mucinex] 1,200 mg PO BID #20 tbmp.12hr 05/11/16 [Rx] L.acidoph/B.animalis/B.longum [Florajen3 Capsule] 460 mg PO DAILY #60 capsule [Rx] Levofloxacin [Levaquin] 750 mg PO DAILY #5 tablet 05/11/16 [Rx] Prednisone 10 mg PO DAILY #30 tab.ds.pk 05/11/16 [Rx] Home Medications Fentanyl [Duragesic 100 mcg/hr patch] 100 mcg TOP Q48H 05/27/12 Alprazolam [Xanax] 1 mg PO TID 12/02/14 Famotidine 20 mg PO HS 12/02/14 Nebulizer [Erapid Nebulizer] 1 each MC .UNKNOWN 12/02/14 Aclidinium [place] [Tudorza Pressair] 1 puff INH BID 12/26/15 Albuterol/Ipratropium Neb [Duoneb] 3 ml NEB Q6H PRN 12/26/15 Alendronate Sodium 70 mg PO .WEEKLY ON RYAN 12/26/15 Budesonide/Formoterol Fumarate [Symbicort 160-4.5 Mcg Inhaler] 2 puff INH BID Dexlansoprazole [Dexilant] 60 mg PO DAILY 12/26/15 Losartan Potassium 50 mg PO DAILY 12/26/15 Lubiprostone [Amitiza] 24 mcg PO BID 12/26/15 Morphine Sulfate 60 mg PO Q4H PRN 12/26/15 Theophylline Anhydrous [Cecilio-24] 200 mg PO DAILY 12/26/15 Atorvastatin Calcium [Lipitor] 40 mg PO QHS 05/04/16 Diltiazem HCl [Cartia Xt] 120 mg PO DAILY 05/04/16 Levalbuterol [Xopenex 0.63 mg] 0.63 mg NEB Q6H PRN 05/04/16 Montelukast Sodium [Singulair] 10 mg PO DAILY 05/04/16 Nitroglycerin [Nitrostat] 0.4 mg SL Q5MX3 PRN 05/04/16 Amoxicillin/Potassium Clav [Augmentin 875-125 Tablet] 1 each PO TIDAC #21 tablet 05/11/16 Calcium Carbonate + Vitamin D [Oscal with Vitamin D] 500 mg PO BID #60 tab 05/11 Guaifenesin [Mucinex] 1,200 mg PO BID #20 tbmp.12hr 05/11/16 L.acidoph/B.animalis/B.longum [Florajen3 Capsule] 460 mg PO DAILY #60 capsule Levofloxacin [Levaquin] 750 mg PO DAILY #5 tablet 05/11/16 Prednisone 10 mg PO DAILY #30 tab.ds.pk 05/11/16 05/10/16 05:00 05/10/16 05:00 Microbiology 05/04/16 19:45 Blood Blood Culture - Final No growth aerobically or anaerobically at 120 hours. NORMAL VALUE = No growth 05/04/16 19:30 Blood Blood Culture - Final No growth aerobically or anaerobically at 120 hours. 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 We did talk about her elevated blood sugars briefly. She is presently on a sliding scale. Given that her hemoglobin A1c is 7.6 and that she will be on chronic steroids she likely needs more management. Will start Januvia and see how she does. I do not believe metformin will get her sugars down but it could be added later to Januvia. Constipation due to opioid therapy (Chronic) K59.03, T40.2X5A Continue bowel regimen
== END 2016-05-11 11:39 | disposition home or self-care (01) | DRG 189 ==
LOC: PCU 17:53 → MPS3 05-05 22:11
PROVIDERS: ADMIT Specialist; ATTEND Specialist
PROC: 039B3ZZ Drainage of Right Radial Artery, Percutaneous Approach (ICD-10-PCS; principal; 2016-05-04)
DX: J96.02 Acute respiratory failure with hypercapnia (principal); E09.69 Drug or chemical induced diabetes mellitus with other specified complication; J44.1 Chronic obstructive pulmonary disease with (acute) exacerbation; G89.4 Chronic pain syndrome; K21.9 Gastro-esophageal reflux disease without esophagitis; I10 Essential (primary) hypertension; K59.00 Constipation, unspecified; T40.2X5A Adverse effect of other opioids, initial encounter; J45.909 Unspecified asthma, uncomplicated; M19.90 Unspecified osteoarthritis, unspecified site; F41.9 Anxiety disorder, unspecified; Z88.8 Allergy status to other drugs, medicaments and biological substances; Z79.899 Other long term (current) drug therapy; Z79.891 Long term (current) use of opiate analgesic; T38.0X5A Adverse effect of glucocorticoids and synthetic analogues, initial encounter; Y92.239 Unspecified place in hospital as the place of occurrence of the external cause; F17.210 Nicotine dependence, cigarettes, uncomplicated; R53.83 Other fatigue
CPT/HCPCS: 36600; 71010; 80048; 80053; 80198; 81001; 82550; 82553; 82803; 82962; 83036; 84484; 85007; 85027; 85610; 85730; 87040; 87086; 93005; 94640; 96372; 99406; J0456; J0692; J1650; J2920; J2930; J3490; J7060; J7070; J7614; J7620